=== PATIENT | male | born 1975 | race Caucasian/White ===

== ENCOUNTER 2022-03-29 13:37 | Inpatient (IN) | payer MEDICARE, OTHER ==
[2022-03-29] MEDS: NITROGLYCERIN SL TABS 0.4 MG TAB SUBLINGUAL PRN ×3 (13:46→14:24)
--- NOTE | 2022-03-29 14:11 | ED ---
SOB HPI - General Chief Complaint: Shortness of Breath Stated Complaint: EMILIANO Time Seen by Provider: 03/29/22 13:39 - History of Present Illness Initial Comments: 47-year-old male with past medical history of diabetes, end-stage renal disease on hemodialysis presents to the emergency department with shortness of breath. Patient has been doing in Center dialysis since December of this year. Previous to that he was doing home hemodialysis for a year. His motor bike mechanic is Dr. Walsh out of [place]. The patient was in court today for his stepson. States that he went to the restroom and became extremely short of breath. Began feeling lightheaded. EMS was called and found him to be 86%. Patient presents in severe respiratory distress. Extremely elevated blood pressure. He is supposed to take 2 mg Bumex daily however has not been on this medication for several months. He was hospitalized last week at [facility] for GI bleeding due to peptic ulcer disease. He left AGAINST MEDICAL ADVICE. States that he did not have any respiratory issues at that time. He has not missed any dialysis sessions. He made them aware at [facility] that he was not taking his Bumex and he was not instructed to restart it. He denies any fevers or chills. No syncope. No other alleviating, Perceptin or modifying factors - Related Data Home Medications Medication Instructions Recorded Confirmed ALPRAZolam [Xanax] 0.5 mg PO HS 03/29/22 03/29/22 Calcium Acetate [PhosLo] 2,001 mg PO TID-W/MEALS 03/29/22 03/29/22 Dialyvite 1 tab PO DAILY 03/29/22 03/29/22 Gabapentin 300 mg PO HS 03/29/22 03/29/22 Gabapentin [Neurontin] 300 mg PO DAILY PRN 03/29/22 03/29/22 HYDROcodone/APAP 7.5-325MG [[place] 1 tab PO TID PRN 03/29/22 03/29/22 7.5-325] INSULIN ASPART (NovoLOG) [NovoLOG See Protocol SQ TID-W/MEALS PRN 03/29/22 03/29/22 (formulary)] Lidocaine-Prilocaine Cream [Emla 1 applic TOPICAL DAILY PRN 03/29/22 03/29/22 Cream 2.5%/2.5%] Omeprazole 40 mg PO BID 03/29/22 03/29/22 Sodium Bicarbonate Tab 650 mg PO BID 03/29/22 03/29/22 Sucralfate [Carafate] 1 gm PO QID 03/29/22 03/29/22 Testosterone Cypionate 200 mg IM Q14D 03/29/22 03/29/22 [Depo-Testosterone] calcitrioL [Calcitriol] 1.5 mcg PO DAILY 03/29/22 03/29/22 rOPINIRole HCL [Requip] 0.5 mg PO HS 03/29/22 03/29/22 Previous Rx's Medication Instructions Recorded Bumetanide [BUMEX] 2 mg PO BID #30 tab 03/31/22 Levothyroxine Sodium [Synthroid] 25 mcg PO DAILY #30 tab 03/31/22 Losartan Potassium 100 mg PO HS #30 tab 03/31/22 amLODIPine [Norvasc] 5 mg PO DAILY #30 tab 03/31/22 carvediloL 12.5 mg PO BID #30 tab 03/31/22 Allergies Allergy/AdvReac Type Severity Reaction Status Date / Time No Known Allergies Allergy Verified 03/29/22 16:52 Review of Systems ROS Statement: Those systems with pertinent positive or pertinent negative responses have been documented in the HPI. ROS Other: All systems not noted in ROS Statement are negative. General Exam General appearance: alert, in distress Head exam: Present: atraumatic, normocephalic, normal inspection Eye exam: Present: normal appearance, PERRL, EOMI. Absent: scleral icterus, conjunctival injection, periorbital swelling ENT exam: Present: normal exam, mucous membranes moist Neck exam: Present: normal inspection. Absent: tenderness, meningismus, lymphadenopathy Respiratory exam: Present: rales, accessory muscle use, decreased breath sounds. Absent: respiratory distress, wheezes, rhonchi, stridor Cardiovascular Exam: Present: normal rhythm, tachycardia, normal heart sounds. Absent: systolic murmur, diastolic murmur, rubs, gallop, clicks GI/Abdominal exam: Present: soft, normal bowel sounds. Absent: distended, tenderness, guarding, rebound, rigid Extremities exam: Present: normal inspection, full ROM, normal capillary refill, pedal edema. Absent: tenderness, joint swelling, calf tenderness Back exam: Present: normal inspection Neurological exam: Present: alert, oriented X3, CN II-XII intact Psychiatric exam: Present: normal affect, normal mood, anxious Skin exam: Present: warm, intact, normal color, diaphoretic. Absent: rash Course Vital Signs 03/29/22 03/29/22 03/29/22 13:45 13:50 13:55 Temperature 97.8 F Pulse Rate 109 H Pulse Rate [ Pulse Oximetery ] Respiratory 32 H 30 H Rate Blood Pressure 244/161 Blood Pressure [Right Arm] O2 Sat by Pulse 86 L Oximetry Fraction of 80 Inspired Oxygen (FIO2) 03/29/22 03/29/22 03/29/22 14:09 14:20 14:41 Temperature Pulse Rate 102 H 98 Pulse Rate [ Pulse Oximetery ] Respiratory 30 H 30 H Rate Blood Pressure 207/123 219/127 Blood Pressure [Right Arm] O2 Sat by Pulse 92 L 100 Oximetry Fraction of 40 Inspired Oxygen (FIO2) 03/29/22 03/29/22 03/29/22 14:51 15:54 17:11 Temperature Pulse Rate 95 95 90 Pulse Rate [ Pulse Oximetery ] Respiratory 27 H 40 H 40 H Rate Blood Pressure 193/101 207/110 205/111 Blood Pressure [Right Arm] O2 Sat by Pulse 100 99 99 Oximetry Fraction of Inspired Oxygen (FIO2) 03/29/22 03/29/22 03/29/22 18:06 18:25 19:06 Temperature 98.4 F Pulse Rate Pulse Rate [ 91 Pulse Oximetery ] Respiratory 27 H Rate Blood Pressure 190/87 Blood Pressure 170/79 [Right Arm] O2 Sat by Pulse 100 Oximetry Fraction of 40 40 Inspired Oxygen (FIO2) 03/29/22 03/29/22 03/29/22 19:55 20:37 21:20 Temperature Pulse Rate 96 Pulse Rate [ Pulse Oximetery ] Respiratory 20 Rate Blood Pressure Blood Pressure 179/83 [Right Arm] O2 Sat by Pulse 97 Oximetry Fraction of 40 Inspired Oxygen (FIO2) Medical Decision Making - Medical Decision Making Upon arrival patient was immediately placed into trauma 2. A thorough history and physical exam was performed. Due to patient's significant respiratory distress he is placed on BiPAP. Laboratory studies are obtained and reviewed. Creatinine 12.1. BNP is 22,000. Chest x-ray demonstrates congestive heart failure. Patient was given 2 sublingual nitros with improvement in his blood pressure. He is given 1 mg of Bumex IV. I called and spoke with Dr. Johnson who is arranging the patient's dialysis at this time. Patient will be admitted [facility]. Spoke with Dr. Schwartz who agreed to admit the patient. He remained in stable condition awaiting a bed on the floor - Lab Data Result diagrams: 03/30/22 15:40 03/30/22 15:40 Lab Results 03/29/22 03/29/22 03/29/22 Range/Units 14:03 14:03 14:03 WBC 11.0 H (3.8-10.6) k/uL RBC 3.32 L (4.30-5.90) m/uL Hgb 9.5 L (13.0-17.5) gm/dL Hct 31.0 L (39.0-53.0) % MCV 93.5 (80.0-100.0) fL MCH 28.5 (25.0-35.0) pg MCHC 30.5 L (31.0-37.0) g/dL RDW 16.4 H (11.5-15.5) % Plt Count 310 (150-450) k/uL MPV 7.4 Neutrophils % 79 % Lymphocytes % 14 % Monocytes % 4 % Eosinophils % 2 % Basophils % 1 % Neutrophils # 8.7 H (1.3-7.7) k/uL Lymphocytes # 1.5 (1.0-4.8) k/uL Monocytes # 0.5 (0-1.0) k/uL Eosinophils # 0.2 (0-0.7) k/uL Basophils # 0.1 (0-0.2) k/uL Hypochromasia Moderate Anisocytosis Slight PT (9.0-12.0) sec INR (<1.2) APTT (22.0-30.0) sec Sodium 142 (137-145) mmol/L Potassium 5.1 (3.5-5.1) mmol/L Chloride 105 (98-107) mmol/L Carbon Dioxide 22 (22-30) mmol/L Anion Gap 15 mmol/L BUN 72 H (9-20) mg/dL Creatinine 12.14 H* (0.66-1.25) mg/dL Est GFR (CKD-EPI)AfAm 5 (>60 ml/min/1.73 sqM) Est GFR (CKD-EPI)NonAf 4 (>60 ml/min/1.73 sqM) Glucose 191 H (74-99) mg/dL Plasma Lactic Acid Forrest 0.9 (0.7-2.0) mmol/L Calcium 10.0 (8.4-10.2) mg/dL Total Bilirubin 0.6 (0.2-1.3) mg/dL AST 20 (17-59) U/L ALT 14 (4-49) U/L Alkaline Phosphatase 89 (38-126) U/L Troponin I (0.000-0.034) ng/mL NT-Pro-B Natriuret Pep pg/mL Total Protein 8.0 (6.3-8.2) g/dL Albumin 4.6 (3.5-5.0) g/dL Hep Bs Antigen (Nonreactive) Hep Bs Antibody (Nonreactive) Hep Bs Antibody, Quant mIU/mL 03/29/22 03/29/22 03/29/22 Range/Units 14:03 14:03 14:03 WBC (3.8-10.6) k/uL RBC (4.30-5.90) m/uL Hgb (13.0-17.5) gm/dL Hct (39.0-53.0) % MCV (80.0-100.0) fL MCH (25.0-35.0) pg MCHC (31.0-37.0) g/dL RDW (11.5-15.5) % Plt Count (150-450) k/uL MPV Neutrophils % % Lymphocytes % % Monocytes % % Eosinophils % % Basophils % % Neutrophils # (1.3-7.7) k/uL Lymphocytes # (1.0-4.8) k/uL Monocytes # (0-1.0) k/uL Eosinophils # (0-0.7) k/uL Basophils # (0-0.2) k/uL Hypochromasia Anisocytosis PT (9.0-12.0) sec INR (<1.2) APTT (22.0-30.0) sec Sodium (137-145) mmol/L Potassium (3.5-5.1) mmol/L Chloride (98-107) mmol/L Carbon Dioxide (22-30) mmol/L Anion Gap mmol/L BUN (9-20) mg/dL Creatinine (0.66-1.25) mg/dL Est GFR (CKD-EPI)AfAm (>60 ml/min/1.73 sqM) Est GFR (CKD-EPI)NonAf (>60 ml/min/1.73 sqM) Glucose (74-99) mg/dL Plasma Lactic Acid Forrest (0.7-2.0) mmol/L Calcium (8.4-10.2) mg/dL Total Bilirubin (0.2-1.3) mg/dL AST (17-59) U/L ALT (4-49) U/L Alkaline Phosphatase (38-126) U/L Troponin I 0.014 (0.000-0.034) ng/mL NT-Pro-B Natriuret Pep 97749 pg/mL Total Protein (6.3-8.2) g/dL Albumin (3.5-5.0) g/dL Hep Bs Antigen Nonreactive (Nonreactive) Hep Bs Antibody (Nonreactive) Hep Bs Antibody, Quant mIU/mL 03/29/22 03/29/22 Range/Units 14:03 14:59 WBC (3.8-10.6) k/uL RBC (4.30-5.90) m/uL Hgb (13.0-17.5) gm/dL Hct (39.0-53.0) % MCV (80.0-100.0) fL MCH (25.0-35.0) pg MCHC (31.0-37.0) g/dL RDW (11.5-15.5) % Plt Count (150-450) k/uL MPV Neutrophils % % Lymphocytes % % Monocytes % % Eosinophils % % Basophils % % Neutrophils # (1.3-7.7) k/uL Lymphocytes # (1.0-4.8) k/uL Monocytes # (0-1.0) k/uL Eosinophils # (0-0.7) k/uL Basophils # (0-0.2) k/uL Hypochromasia Anisocytosis PT 10.6 (9.0-12.0) sec INR 1.0 (<1.2) APTT 23.2 (22.0-30.0) sec Sodium (137-145) mmol/L Potassium (3.5-5.1) mmol/L Chloride (98-107) mmol/L Carbon Dioxide (22-30) mmol/L Anion Gap mmol/L BUN (9-20) mg/dL Creatinine (0.66-1.25) mg/dL Est GFR (CKD-EPI)AfAm (>60 ml/min/1.73 sqM) Est GFR (CKD-EPI)NonAf (>60 ml/min/1.73 sqM) Glucose (74-99) mg/dL Plasma Lactic Acid Forrest (0.7-2.0) mmol/L Calcium (8.4-10.2) mg/dL Total Bilirubin (0.2-1.3) mg/dL AST (17-59) U/L ALT (4-49) U/L Alkaline Phosphatase (38-126) U/L Troponin I (0.000-0.034) ng/mL NT-Pro-B Natriuret Pep pg/mL Total Protein (6.3-8.2) g/dL Albumin (3.5-5.0) g/dL Hep Bs Antigen (Nonreactive) Hep Bs Antibody Nonreactive (Nonreactive) Hep Bs Antibody, Quant 3.5 mIU/mL - EKG Data EKG Comments: EKG demonstrates sinus tach with a rate of 114. ME interval 161. QRS 87. QTC 391. No acute ST segment elevations or depressions Critical Care Time Critical Care Time: Yes Critical Care Time: 35 minutes Disposition Clinical Impression: Flash pulmonary edema, ESRD on dialysis, BiPAP (biphasic positive airway pressure) dependence, Hypertensive emergency Disposition: ADMITTED IP TO THIS [facility] Condition: Serious Is patient prescribed a controlled substance at d/c from ED?: No Time of Disposition: 15:31 Decision to Admit Reason: Admit from EC Decision Date: 03/29/22 Decision Time: 15:31
[2022-03-29 14:14] LABS: Anisocytosis Slight; Basophils # (A) 0.1 k/uL (0-0.2); Basophils % (A) 1 %; Eosinophils # (A) 0.2 k/uL (0-0.7); Eosinophils % (A) 2 %; HGB 9.5 gm/dL (13.0-17.5); Hypochromasia Moderate; Lymphocytes # (A) 1.5 k/uL (1.0-4.8); Lymphocytes % (A) 14 %; MCH 28.5 pg (25.0-35.0); MCHC 30.5 g/dL (31.0-37.0); MCV 93.5 fL (80.0-100.0); Mean Platelet Volume 7.4; Monocytes # (A) 0.5 k/uL (0-1.0); Monocytes % (A) 4 %; Neutrophils # (A) 8.7 k/uL (1.3-7.7); Neutrophils % (A) 79 %; Platelet Count 310 k/uL (150-450); RBC 3.32 m/uL (4.30-5.90); RDW 16.4 % (11.5-15.5)
[2022-03-29 14:30] LABS: Albumin 4.6 g/dL (3.5-5.0); Potassium 5.1 mmol/L (3.5-5.1); Total Bilirubin 0.6 mg/dL (0.2-1.3)
--- NOTE | 2022-03-29 14:52 | XR ---
EXAMINATION TYPE: XR chest 1V portable DATE OF EXAM: 03/29/2022 Comparison: None Clinical History: 47-year-old male sob Findings: Portable exam further limited by large body habitus. The heart appears enlarged. Diffuse interstitial and patchy mid and lower lung opacities. Lung bases are underpenetrated and not well assessed. Impression: Portable exam further limited by large body habitus. Correlate for possible CHF and mild interstitial pulmonary edema.
[2022-03-29 15:18] LABS: Partial Thromboplastin Time 23.2 sec (22.0-30.0); Prothrombin Time 10.6 sec (9.0-12.0)
[2022-03-29] MEDS ORDERED: NALOXONE 0.4 MG/ML 1 ML VIAL IV PRN (15:33)
[2022-03-29] MEDS ORDERED: BUMETANIDE 0.25 MG/ML 4 ML VIAL IVP STA (15:33)
[2022-03-29] MEDS ORDERED: LABETALOL 5 MG/ML VIAL MDV IVP STA (17:06)
[2022-03-29] MEDS ORDERED: GABAPENTIN 300 MG CAP PO PRN (17:19)
--- NOTE | 2022-03-29 17:35 | P.HPIM ---
History of Present Illness Chief Complaint: Shortness of breath Patient is a 47-year-old male with a past medical history significant for essential hypertension, hyperlipidemia, end-stage renal disease on hemodialysis Tuesday, Tuesday, Tuesday, hyperthyroidism and peripheral neuropathy the presents a hospital complaining of shortness of breath. Patient was apparently getting ready to nevus cells may start shortness of breath. He denies any active chest pain, palpitations, nausea or vomiting. Patient has not been compliant with his medication for approximately 1-2 months as he ran out and never refilled his medication. Patient however does follow up with his dialysis regimen last one was on Tuesday. Bedside in the emergency department blood pressure readings were 200/110. He is scheduled for emergent dialysis with nephrology. CBC reviewed where blood cell count of 11, hemoglobin 9.5, platelet within normal limits, BMP reviewed creatinine of 12.14, B1 74 and glucose 194. Cardiac troponin negative. BNP 22,000. Chest x-ray review showed suggesting congestion. Past Medical History Past Medical History: Diabetes Mellitus, Renal Disease, Sleep Apnea/CPAP/BIPAP Additional Past Medical History / Comment(s): dialysis M/W/F History of Any Multi-Drug Resistant Organisms: MRSA Date of last positivie culture/infection: 2009 MDRO Source:: neck Past Surgical History: No Surgical Hx Reported Past Psychological History: No Psychological Hx Reported Smoking Status: Never smoker Past Alcohol Use History: None Reported Past Drug Use History: None Reported Medications and Allergies Home Medications Medication Instructions Recorded Confirmed Type ALPRAZolam [Xanax] 0.5 mg PO HS 03/29/22 03/29/22 History Bumetanide [BUMEX] 2 mg PO BID 03/29/22 03/29/22 History Calcium Acetate [Phoslo] 2,001 mg PO TID-W/MEALS 03/29/22 03/29/22 History Dialyvite 1 tab PO DAILY 03/29/22 03/29/22 History Gabapentin 300 mg PO HS 03/29/22 03/29/22 History Gabapentin [Neurontin] 300 mg PO DAILY PRN 03/29/22 03/29/22 History HYDROcodone/APAP 7.5-325MG [[place] 1 tab PO TID PRN 03/29/22 03/29/22 History 7.5-325] INSULIN ASPART (NovoLOG) [NovoLOG See Protocol SQ TID-W/MEALS PRN 03/29/22 03/29/22 History (formulary)] Levothyroxine Sodium [Synthroid] 25 mcg PO DAILY 03/29/22 03/29/22 History Lidocaine-Prilocaine Cream [Emla 1 applic TOPICAL DAILY PRN 03/29/22 03/29/22 History Cream 2.5%/2.5%] Losartan Potassium 100 mg PO HS 03/29/22 03/29/22 History Omeprazole 40 mg PO BID 03/29/22 03/29/22 History Sodium Bicarbonate Tab 650 mg PO BID 03/29/22 03/29/22 History Sucralfate [Carafate] 1 gm PO QID 03/29/22 03/29/22 History Testosterone Cypionate 200 mg IM Q14D 03/29/22 03/29/22 History [Depo-Testosterone] amLODIPine [Norvasc] 5 mg PO DAILY 03/29/22 03/29/22 History calcitrioL [Calcitriol] 1.5 mcg PO DAILY 03/29/22 03/29/22 History carvediloL 12.5 mg PO BID 03/29/22 03/29/22 History rOPINIRole HCL [Requip] 0.5 mg PO HS 03/29/22 03/29/22 History Allergies Allergy/AdvReac Type Severity Reaction Status Date / Time No Known Allergies Allergy Verified 03/29/22 16:52 Physical Exam Vitals: Vital Signs Temp Pulse Resp BP Pulse Ox FiO2 03/29/22 17:11 90 40 H 205/111 99 03/29/22 15:54 95 40 H 207/110 99 03/29/22 14:51 95 27 H 193/101 100 03/29/22 14:41 40 03/29/22 14:20 98 30 H 219/127 100 03/29/22 14:09 102 H 30 H 207/123 92 L 03/29/22 13:55 80 03/29/22 13:50 30 H 03/29/22 13:45 97.8 F 109 H 32 H 244/161 86 L Intake and Output 03/29/22 03/29/22 03/29/22 06:59 14:59 22:59 Other: Weight 154.221 kg Gen. patient is awake alert oriented 3 Cardio normal S1/S2 Respiratory decreased breath sounds secondary to body habitus no wheezing appreciated Abdomen soft, nontender Extremity no pitting edema noted Psychiatry patient is in good spirits. Results CBC & Chem 7: 03/29/22 14:03 03/29/22 14:03 Labs: Abnormal Lab Results - Last 24 Hours (Table) 03/29/22 03/29/22 Range/Units 14:03 14:03 WBC 11.0 H (3.8-10.6) k/uL RBC 3.32 L (4.30-5.90) m/uL Hgb 9.5 L (13.0-17.5) gm/dL Hct 31.0 L (39.0-53.0) % MCHC 30.5 L (31.0-37.0) g/dL RDW 16.4 H (11.5-15.5) % Neutrophils # 8.7 H (1.3-7.7) k/uL BUN 72 H (9-20) mg/dL Creatinine 12.14 H* (0.66-1.25) mg/dL Glucose 191 H (74-99) mg/dL Assessment and Plan Assessment: Assessment: #1 hypertensive urgency secondary to medication noncompliance #2 essential hypertension #3 end-stage renal disease on hemodialysis #4 hyperlipidemia #5 hypothyroidism #6 peripheral neuropathy #7 severe obesity class III Plan: -Admit to medicine for close monitoring -Aspiration/fall precaution -Scheduled for urgent dialysis today -One-time dose of labetalol IV 10 mg -Resume home medication. Education regarding compliance provided at bedside. -Nephrology consulted for dialysis -Education regarding compliance provided at bedside -Patient will also benefit from weight loss interventions -Obtain lipid panel hemoglobin A1c -Due to prophylaxis heparin
[2022-03-29] MEDS: carvediloL 12.5 MG TAB PO SCH (19:05)
[2022-03-29] MEDS: ALPRAZolam 0.5 MG TAB PO SCH (21:09)
[2022-03-29] MEDS: SODIUM BICARBONATE TAB 650 MG TAB PO SCH (21:10)
[2022-03-29] MEDS: CALCIUM ACETATE 667 MG TAB PO SCH (21:11)
[2022-03-29] MEDS: PANTOPRAZOLE 40 MG TABLET PO SCH (21:12)
[2022-03-29] MEDS: GABAPENTIN 300 MG CAP PO SCH (21:12)
[2022-03-29] MEDS: LOSARTAN 50 MG TAB PO SCH (21:13)
[2022-03-29] MEDS: HYDROcodone/APAP 7.5-325MG 1 EACH TAB PO PRN (21:13)
[2022-03-29] MEDS: BUMETANIDE 1 MG TAB PO SCH (21:18)
[2022-03-29] MEDS: SUCRALFATE 1 GM TAB PO SCH ×2 (21:22→21:23)
[2022-03-29 23:49] LABS: Hepatitis B Surface AB- Quant 3.5 mIU/mL; Hepatitis B Surface Antibody Nonreactive (Nonreactive)
[2022-03-30] MEDS: HEPARIN SODIUM,PORCINE/PF 5,000 UNIT/0.5 ML SYRINGE SQ SCH ×4 (00:52→23:30)
[2022-03-30 06:13] LABS: Glucose,Whole Blood 177 mg/dL (70-110)
[2022-03-30] MEDS: INSULIN ASPART (NovoLOG) 100 UNIT/ML VIAL SQ SCH ×3 (06:40→17:12)
[2022-03-30] MEDS: HYDROcodone/APAP 7.5-325MG 1 EACH TAB PO PRN ×2 (06:40→20:09)
[2022-03-30] MEDS: carvediloL 12.5 MG TAB PO SCH ×2 (06:40→18:58)
[2022-03-30] MEDS: LEVOTHYROXINE 25 MCG TAB PO SCH (06:40)
[2022-03-30] MEDS: BUMETANIDE 1 MG TAB PO SCH ×2 (08:28→20:06)
[2022-03-30] MEDS: CALCIUM ACETATE 667 MG TAB PO SCH ×3 (08:28→17:13)
[2022-03-30] MEDS: SUCRALFATE 1 GM TAB PO SCH ×4 (08:28→20:07)
[2022-03-30] MEDS: PANTOPRAZOLE 40 MG TABLET PO SCH ×2 (08:28→20:06)
[2022-03-30] MEDS: SODIUM BICARBONATE TAB 650 MG TAB PO SCH ×2 (08:28→20:06)
[2022-03-30] MEDS ORDERED: amLODIPine 5 MG TAB PO SCH (09:00)
--- NOTE | 2022-03-30 09:10 | P.PN ---
Subjective Patient was examined at bedside today. He is very appreciative the help, follow-up with his primary care doctor regarding medication refills that he is more compliant. He does have a very positive outlook. He is due for hemodialysis session today. Denies any shortness of breath, chest pain or palpitations during my evaluation. Was on the phone with his was also provided a conversation. Objective - Vital Signs Vital signs: Vital Signs Temp 98.5 F 03/30/22 04:00 Pulse 89 03/30/22 04:00 Resp 22 03/30/22 04:00 BP 172/80 03/30/22 04:00 Pulse Ox 98 03/30/22 08:22 FiO2 40 03/30/22 04:00 Intake & Output 03/29/22 03/30/22 03/30/22 18:59 06:59 18:59 Output Total 4250 Balance -4250 Weight 154.221 kg Output: Urine 250 Hemodialysis 4000 Other: Voiding Method Indwelling Catheter - Exam Gen. patient is awake alert oriented 3 Cardio normal S1/S2 Respiratory decreased breath sounds secondary to body habitus no wheezing appreciated-BiPAP present at bedside use it overnight Abdomen soft, nontender Extremity no pitting edema noted Psychiatry patient is in good spirits. - Labs CBC & Chem 7: 03/29/22 14:03 03/29/22 14:03 Labs: Abnormal Lab Results - Last 24 Hours (Table) 03/29/22 03/29/22 03/30/22 Range/Units 14:03 14:03 05:56 WBC 11.0 H (3.8-10.6) k/uL RBC 3.32 L (4.30-5.90) m/uL Hgb 9.5 L (13.0-17.5) gm/dL Hct 31.0 L (39.0-53.0) % MCHC 30.5 L (31.0-37.0) g/dL RDW 16.4 H (11.5-15.5) % Neutrophils # 8.7 H (1.3-7.7) k/uL BUN 72 H (9-20) mg/dL Creatinine 12.14 H* (0.66-1.25) mg/dL Glucose 191 H (74-99) mg/dL POC Glucose (mg/dL) 177 H (70-110) mg/dL Assessment and Plan Assessment: Assessment: #1 hypertensive urgency secondary to medication noncompliance #2 essential hypertension #3 end-stage renal disease on hemodialysis #4 hyperlipidemia #5 hypothyroidism #6 peripheral neuropathy #7 severe obesity class III Plan: -Admit to medicine for close monitoring -Aspiration/fall precaution -Scheduled for another hemodialysis with nephrotic today. -Needs better blood pressure control with a goal of less than 130/80 titrate slowly -Resume home medication. Education regarding compliance provided at bedside. -Nephrology for dialysis -Education regarding compliance provided at bedside -Patient will also benefit from weight loss interventions -Obtain lipid panel hemoglobin A1c pending -DVT prophylaxis heparin
[2022-03-30] MEDS ORDERED: amLODIPine 5 MG TAB PO ONE (09:15)
[2022-03-30 11:53] LABS: Glucose,Whole Blood 210 mg/dL (70-110)
--- NOTE | 2022-03-30 14:22 | CDI ---
Documentation Clarification Form Date: 03/30/2022 02:06:44 PM From: Yumiko Faria RN CCDS Admit Date: 03/29/2022 03:33:00 PM Patient Name: Brad Fuentes Visit Number: [id number] Discharge Date: ATTENTION: The Clinical Documentation Specialists (CDI) and [facility] Coding Staff appreciate your assistance in clarifying documentation. Please respond to the clarification below the line at the bottom and electronically sign. The CDI & [facility] Coding staff will review the response and follow-up if needed. Please note: Queries are made part of the Legal Health Record. If you have any questions, please contact the author of this message via ITS. Dr. Tamir Jasso Your patient had a SpO2 86% on room air, treated with BiPAP, 03/29, VSS. Based on this information and the findings below, is there an additional diagnosis that is clinically appropriate for this patient? History/Risk Factors: 47-year-old male presents to the ED with shortness of breath. Medical history: ESRD, DM and Sleep apnea CPAP/BIPAP. 03/29, H&P Clinical Indicators: Vital signs: 03/29 B/P 13:45 B/P 244/161; HR 109; Temp 97.8 F Axillary; RR 32; SpO2 86% room air 03/29 14:09 VSS B/P 207/123, HR 102 RR 30 SpO2 92% BiPAP Lung/Breathing assessment: 03/29 H&P Respiratory decreased breath sounds secondary to body habitus no wheezing Treatment: 03/29 Bumex 1mg IVP x 1; 03/29 Bumex 2mg PO Bid; 03/29 Dialysis 4,000 output BiPAP: 03/29 13:50 03/30 0400 Is there an additional diagnosis that is clinically appropriate for this patient? [ 1 ] Acute Hypoxic Respiratory Failure (pO2 <60 mm Hg or SpO2 <91% on room air) [ ] Other Diagnosis, please specify [ ] Unable to determine (Template Last Revised: November 2020) MTDD
[2022-03-30 15:55] LABS: Anisocytosis Slight; Basophils % (A) 0 %; Eosinophils # (A) 0.2 k/uL (0-0.7); Eosinophils % (A) 3 %; HCT 25.3 % (39.0-53.0); Hypochromasia Slight; Lymphocytes # (A) 1.4 k/uL (1.0-4.8); Lymphocytes % (A) 19 %; MCH 28.1 pg (25.0-35.0); MCHC 30.5 g/dL (31.0-37.0); MCV 92.2 fL (80.0-100.0); Mean Platelet Volume 7.5; Monocytes # (A) 0.5 k/uL (0-1.0); Monocytes % (A) 7 %; Neutrophils # (A) 4.9 k/uL (1.3-7.7); Neutrophils % (A) 69 %; Platelet Count 230 k/uL (150-450); RBC 2.75 m/uL (4.30-5.90); RDW 16.3 % (11.5-15.5)
[2022-03-30 15:57] LABS: HGB 7.7 gm/dL (13.0-17.5)
[2022-03-30 16:05] LABS: African American GFR (CKD) 6 (>60 ml/min/1.73 sqM); Carbon Dioxide 25 mmol/L (22-30); Chloride 103 mmol/L (98-107); Non-African American GFR(CKD) 5 (>60 ml/min/1.73 sqM)
[2022-03-30 16:12] LABS: Anion Gap 10 mmol/L; Blood Urea Nitrogen 57 mg/dL (9-20); Calcium 9.3 mg/dL (8.4-10.2); Glucose 188 mg/dL (74-99); Potassium 4.9 mmol/L (3.5-5.1); Sodium 138 mmol/L (137-145)
[2022-03-30 16:53] LABS: Glucose,Whole Blood 172 mg/dL (70-110)
--- NOTE | 2022-03-30 19:51 | CONS ---
CONSULTATION REASON FOR CONSULTATION: End-stage renal disease. HISTORY OF PRESENT ILLNESS: Patient is a 47-year-old male with end-stage renal disease secondary to diabetic kidney disease. Patient was admitted to the hospital with complaints of shortness of breath. Patient denied any chest pains. No nausea or vomiting. No fever or chills. Patient had not had his dialysis Tuesday as outpatient and was therefore dialyzed in the hospital last night. His blood pressure was significantly elevated, with systolic blood pressure more than 200. Patient had 4 L of ultrafiltration. Patient currently dialyzes at the [facility]. He states that he lives in [place] and would like to move to a unit that is closer. PAST MEDICAL HISTORY: Type 2 diabetes, obstructive sleep apnea, end-stage renal disease. PAST SURGICAL HISTORY: PermCath placement previously, AV fistula. SOCIAL HISTORY: Negative for smoking, drug abuse or alcohol abuse. MEDICATIONS: Medications include Bumex, Xanax, PhosLo, , Neurontin, insulin, Synthroid, sodium bicarb, Carafate, Norvasc, calcitriol, Coreg, Requip, Carafate. ALLERGIES: NONE. REVIEW OF SYSTEMS: As per HPI. Other systems negative. PHYSICAL EXAMINATION: Patient is comfortable, awake, alert, oriented x3. Not in any acute distress. Blood pressure was 165/76, heart rate 81 per minute. Patient is afebrile. Examination of the heart: S1, S2. Examination of lungs: Bilateral breath sounds are heard. Examination of lower extremities shows edema 1+ bilaterally. Abdomen is soft, obese, nontender. 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 LABS: Hemoglobin 9.5, sodium 142, potassium 5.1, serum creatinine 12.1. ASSESSMENT: 1. End-stage renal disease, maintained on in-center hemodialysis on a Tuesday, Tuesday, Tuesday schedule. Patient had been on home hemodialysis previously. 2. Fluid overload, currently improved. 3. Hypertensive emergency, status post hemodialysis yesterday with 4 L of ultrafiltration. Blood pressure is slightly improved. 4. Chronic kidney disease mineral bone disorder. PLAN: Repeat hemodialysis today. Patient will have another treatment tomorrow, as tomorrow is his regular day. He is advised that he can submit a referral for transfer to either the Unit or the [facility] for dialysis, as these two units are much closer to where he resides. This is discussed with Case Management as well. Thank you for the consultation. We will continue to follow the patient with you during his hospitalization. MMRENITA / SHERI: [id number] /
[2022-03-30] MEDS: ALPRAZolam 0.5 MG TAB PO SCH (20:06)
[2022-03-30] MEDS: LOSARTAN 50 MG TAB PO SCH (20:06)
[2022-03-30] MEDS: GABAPENTIN 300 MG CAP PO SCH (20:06)
[2022-03-30 20:17] LABS: Glucose,Whole Blood 193 mg/dL (70-110)
[2022-03-31 02:52] LABS: Chol/HDL Ratio 4.39 Ratio; LDL Cholesterol,Calculated 84.5 mg/dL (0.0-131.0)
[2022-03-31 06:09] LABS: Glucose,Whole Blood 178 mg/dL (70-110)
[2022-03-31] MEDS: CALCIUM ACETATE 667 MG TAB PO SCH ×2 (06:23→12:17)
[2022-03-31] MEDS: carvediloL 12.5 MG TAB PO SCH (06:23)
[2022-03-31] MEDS: INSULIN ASPART (NovoLOG) 100 UNIT/ML VIAL SQ SCH ×2 (06:23→12:17)
[2022-03-31] MEDS: LEVOTHYROXINE 25 MCG TAB PO SCH (06:23)
[2022-03-31] MEDS: PANTOPRAZOLE 40 MG TABLET PO SCH (08:07)
[2022-03-31] MEDS: BUMETANIDE 1 MG TAB PO SCH (08:07)
[2022-03-31] MEDS: SODIUM BICARBONATE TAB 650 MG TAB PO SCH (08:07)
[2022-03-31] MEDS: SUCRALFATE 1 GM TAB PO SCH ×2 (08:07→12:17)
[2022-03-31] MEDS: HEPARIN SODIUM,PORCINE/PF 5,000 UNIT/0.5 ML SYRINGE SQ SCH (08:07)
[2022-03-31] MEDS ORDERED: amLODIPine 10 MG TAB PO SCH (09:00)
[2022-03-31 09:37] VITALS: RESP 20
--- NOTE | 2022-03-31 10:57 | P.PN ---
Subjective Patient is seen for follow-up for end-stage renal disease. He was dialyzed yesterday with 4 L of ultrafiltration. Patient had her treatment prior to that as well with another 4 L. Patient will be discharged today and he plans to switch to a dialysis unit that is much closer. He has been advised to contact [facility] as outpatient for possible transfer. Objective - Vital Signs Vital signs: Vital Signs Temp 98.6 F 03/30/22 20:05 Pulse 70 03/31/22 08:00 Resp 20 03/31/22 08:00 BP 158/89 03/31/22 08:00 Pulse Ox 97 03/31/22 08:00 FiO2 40 03/31/22 04:31 Intake & Output 03/30/22 03/31/22 03/31/22 18:59 06:59 18:59 Intake Total 476 1000 Output Total 100 4400 Balance 376 -3400 Weight 152.6 kg Intake: Oral 476 600 Hemodialysis 400 Output: Urine 100 Uretheral (Fonseca) 100 Hemodialysis 4400 Other: Voiding Method Toilet Toilet # Voids 3 3 - Exam Awake, comfortable, not in any acute distress Alert oriented 3 Examination of the abdomen reveals it to be soft nontender Examination lower extremity shows no evidence of edema [employer] exam grossly intact - Labs CBC & Chem 7: 03/30/22 15:40 03/30/22 15:40 Labs: Abnormal Lab Results - Last 24 Hours (Table) 03/30/22 03/30/22 03/30/22 Range/Units 11:51 15:40 15:40 RBC 2.75 L (4.30-5.90) m/uL Hgb 7.7 L D (13.0-17.5) gm/dL Hct 25.3 L (39.0-53.0) % MCHC 30.5 L (31.0-37.0) g/dL RDW 16.3 H (11.5-15.5) % BUN 57 H (9-20) mg/dL Creatinine 10.70 H* (0.66-1.25) mg/dL Glucose 188 H (74-99) mg/dL POC Glucose (mg/dL) 210 H (70-110) mg/dL Hemoglobin A1c (0.0-6.0) % HDL Cholesterol 31.90 L (40.00-60.00) mg/dL 03/30/22 03/30/22 03/30/22 Range/Units 15:40 16:35 20:15 RBC (4.30-5.90) m/uL Hgb (13.0-17.5) gm/dL Hct (39.0-53.0) % MCHC (31.0-37.0) g/dL RDW (11.5-15.5) % BUN (9-20) mg/dL Creatinine (0.66-1.25) mg/dL Glucose (74-99) mg/dL POC Glucose (mg/dL) 172 H 193 H (70-110) mg/dL Hemoglobin A1c 7.3 H (0.0-6.0) % HDL Cholesterol (40.00-60.00) mg/dL 03/31/22 Range/Units 06:06 RBC (4.30-5.90) m/uL Hgb (13.0-17.5) gm/dL Hct (39.0-53.0) % MCHC (31.0-37.0) g/dL RDW (11.5-15.5) % BUN (9-20) mg/dL Creatinine (0.66-1.25) mg/dL Glucose (74-99) mg/dL POC Glucose (mg/dL) 178 H (70-110) mg/dL Hemoglobin A1c (0.0-6.0) % HDL Cholesterol (40.00-60.00) mg/dL Assessment and Plan Assessment: 1. End-stage renal disease maintained on hemodialysis at the [facility] unit on a Tuesday schedule. Patient is looking for possible transfer to a closer unit. 2. Volume overload currently improved 3. CK D mineral bone disorder 4. Hypertension with CK D 5. Anemia of chronic disease. No active bleeding noted Plan: Patient can be discharged and he will follow-up for his hemodialysis as outpatient [facility] 1 prior to discharge Patient is advised that he can request for transfer to the [facility] unit or [facility] unit post discharge As outpatient
[2022-03-31 11:37] LABS: Glucose,Whole Blood 272 mg/dL (70-110)
[2022-03-31 11:58] VITALS: BP 136/91; PULSE 72; TEMP 98.2
--- NOTE | 2022-03-31 12:37 | P.DS ---
Providers Date of admission: 03/29/22 15:33 Attending physician: Elva Schwartz DO Consults: 03/29/22 15:00 Consult Physician Urgent Consulting Provider: Jeimy Johnson Consult Reason/Comments: esrd on hd Do you want consulting provider notified?: Already Contacted Primary care physician: Physician Nonstaff Hospital Course: Patient is a 47-year-old male with a past medical history significant for ess ential hypertension, hyperlipidemia, end-stage renal disease on hemodialysis Tuesday, Tuesday, Tuesday, hyperthyroidism and peripheral neuropathy the presents a hospital complaining of shortness of breath. Patient was apparently getting ready to nevus cells may start shortness of breath. He denies any active chest pain, palpitations, nausea or vomiting. Patient has not been compliant with his medication for approximately 1-2 months as he ran out and never refilled his medication. Patient however does follow up with his dialysis regimen last one was on Tuesday. Bedside in the emergency department blood pressure readings were 200/110. He is scheduled for emergent dialysis with nephrology. CBC reviewed where blood cell count of 11, hemoglobin 9.5, platelet within normal limits, BMP reviewed creatinine of 12.14, B1 74 and glucose 194. Cardiac troponin negative. BNP 22,000. Chest x-ray review showed suggesting congestion. Was evaluated by nephrology. Patient underwent hemodialysis 2. He is scheduled for another hemodialysis at the Center today. I did speak with case management and the patient regarding moving the hemodialysis chair closer. Case management informed that the family and the patient have to coordinate that with the dialysis center. Patient is aware of this. He is trying to make this happen. Indication compliance and making sure that he takes medication on time. Patient states he will make changes including lifestyle and adhering to his medication. Today at bedside his vital signs are stable he denies any shortness of breath, chest pain or palpitations. Case discussed with RN, family his present at bedside and himself all questions were answered. She has been cleared by nephrology for discharge today. Patient Condition at Discharge: Serious Plan - Discharge Summary Discharge Rx Participant: No New Discharge Prescriptions: Continue Sucralfate [Carafate] 1 gm PO QID rOPINIRole HCL [Requip] 0.5 mg PO HS INSULIN ASPART (NovoLOG) [NovoLOG (formulary)] See Protocol SQ TID-W/MEALS PRN PRN Reason: high blood sugar HYDROcodone/APAP 7.5-325MG [[place] 7.5-325] 1 tab PO TID PRN PRN Reason: Pain Calcium Acetate [PhosLo] 2,001 mg PO TID-W/MEALS calcitrioL [Calcitriol] 1.5 mcg PO DAILY Testosterone Cypionate [Depo-Testosterone] 200 mg IM Q14D Sodium Bicarbonate Tab 650 mg PO BID Bumetanide [BUMEX] 2 mg PO BID #30 tab carvediloL 12.5 mg PO BID #30 tab amLODIPine [Norvasc] 5 mg PO DAILY #30 tab Levothyroxine Sodium [Synthroid] 25 mcg PO DAILY #30 tab Omeprazole 40 mg PO BID Lidocaine-Prilocaine Cream [Emla Cream 2.5%/2.5%] 1 applic TOPICAL DAILY PRN PRN Reason: before dialysis Gabapentin [Neurontin] 300 mg PO DAILY PRN PRN Reason: nerve pain Gabapentin 300 mg PO HS Dialyvite 1 tab PO DAILY ALPRAZolam [Xanax] 0.5 mg PO HS Losartan Potassium 100 mg PO HS #30 tab Discharge Medication List ALPRAZolam [Xanax] 0.5 mg PO HS 03/29/22 [History] Calcium Acetate [PhosLo] 2,001 mg PO TID-W/MEALS 03/29/22 [History] Dialyvite 1 tab PO DAILY 03/29/22 [History] Gabapentin 300 mg PO HS 03/29/22 [History] Gabapentin [Neurontin] 300 mg PO DAILY PRN 03/29/22 [History] HYDROcodone/APAP 7.5-325MG [[place] 7.5-325] 1 tab PO TID PRN 03/29/22 [History] INSULIN ASPART (NovoLOG) [NovoLOG (formulary)] See Protocol SQ TID-W/MEALS PRN 03/29/22 [History] Lidocaine-Prilocaine Cream [Emla Cream 2.5%/2.5%] 1 applic TOPICAL DAILY PRN 03/29/22 [History] Omeprazole 40 mg PO BID 03/29/22 [History] Sodium Bicarbonate Tab 650 mg PO BID 03/29/22 [History] Sucralfate [Carafate] 1 gm PO QID 03/29/22 [History] Testosterone Cypionate [Depo-Testosterone] 200 mg IM Q14D 03/29/22 [History] calcitrioL [Calcitriol] 1.5 mcg PO DAILY 03/29/22 [History] rOPINIRole HCL [Requip] 0.5 mg PO HS 03/29/22 [History] Bumetanide [BUMEX] 2 mg PO BID #30 tab 03/31/22 [Rx] Levothyroxine Sodium [Synthroid] 25 mcg PO DAILY #30 tab 03/31/22 [Rx] Losartan Potassium 100 mg PO HS #30 tab 03/31/22 [Rx] amLODIPine [Norvasc] 5 mg PO DAILY #30 tab 03/31/22 [Rx] carvediloL 12.5 mg PO BID #30 tab 03/31/22 [Rx] Follow up Appointment(s)/Referral(s): Nonstaff,Physician [Primary Care Provider] - 1-2 days Jeimy Johnson MD [STAFF PHYSICIAN] - 1 Week Discharge Disposition: HOME SELF-CARE
== END 2022-03-31 13:00 | disposition home or self-care (01) | DRG 291 ==
LOC: EC 13:37 → 3SCARD 15:33
PROVIDERS: ADMIT Internal Medicine; ATTEND Internal Medicine
PROC: 5A1D70Z Performance of Urinary Filtration, Intermittent, Less than 6 Hours Per Day (ICD-10-PCS; principal; 2022-03-29)
DX: I13.2 Hypertensive heart and chronic kidney disease with heart failure and with stage 5 chronic kidney disease, or end stage renal disease (principal); J96.01 Acute respiratory failure with hypoxia; N18.6 End stage renal disease; I16.1 Hypertensive emergency; I50.9 Heart failure, unspecified; E83.9 Disorder of mineral metabolism, unspecified; E66.01 Morbid (severe) obesity due to excess calories; E11.22 Type 2 diabetes mellitus with diabetic chronic kidney disease; T46.5X6A Underdosing of other antihypertensive drugs, initial encounter; D63.1 Anemia in chronic kidney disease; G47.33 Obstructive sleep apnea (adult) (pediatric); Z99.2 Dependence on renal dialysis; Z79.4 Long term (current) use of insulin; E03.9 Hypothyroidism, unspecified; E78.5 Hyperlipidemia, unspecified; E11.42 Type 2 diabetes mellitus with diabetic polyneuropathy; Z79.890 Hormone replacement therapy; Z79.899 Other long term (current) drug therapy; Z91.128 Patient's intentional underdosing of medication regimen for other reason; Z28.21 Immunization not carried out because of patient refusal; Z86.14 Personal history of Methicillin resistant Staphylococcus aureus infection
CPT/HCPCS: 36415; 51702; 71045; 80048; 80053; 80061; 83036; 83605; 83880; 84484; 85025; 85610; 85730; 86706; 87340; 90935; 93005; 94660; 94760; 96374; 96375; 99285

== ENCOUNTER 2022-05-10 16:15 | Inpatient (IN) | payer MEDICARE, OTHER ==
[2022-05-10 18:51] LABS: Basophils # (A) 0.1 k/uL (0-0.2); Basophils % (A) 1 %; Eosinophils # (A) 0.3 k/uL (0-0.7); Eosinophils % (A) 4 %; HGB 9.2 gm/dL (13.0-17.5); Hypochromasia Marked; Lymphocytes # (A) 1.7 k/uL (1.0-4.8); Lymphocytes % (A) 19 %; MCH 28.9 pg (25.0-35.0); MCHC 30.6 g/dL (31.0-37.0); MCV 94.7 fL (80.0-100.0); Mean Platelet Volume 7.4; Monocytes # (A) 0.5 k/uL (0-1.0); Monocytes % (A) 5 %; Neutrophils # (A) 6.2 k/uL (1.3-7.7); Neutrophils % (A) 70 %; Platelet Count 365 k/uL (150-450); RBC 3.17 m/uL (4.30-5.90); RDW 14.3 % (11.5-15.5); WBC 8.9 k/uL (3.8-10.6)
[2022-05-10 19:05] LABS: Albumin 4.2 g/dL (3.5-5.0); Total Bilirubin 0.6 mg/dL (0.2-1.3); Total Protein 7.5 g/dL (6.3-8.2)
[2022-05-10 19:18] LABS: Potassium 6.2 mmol/L (3.5-5.1)
--- NOTE | 2022-05-10 19:33 | XR ---
EXAMINATION TYPE: XR chest 2V DATE OF EXAM: 05/10/2022 COMPARISON: NONE HISTORY: Weakness TECHNIQUE: 2 view FINDINGS: There is no heart failure nor confluent pneumonic infiltrate. Costophrenic angles are clear . There are no hilar masses. The bony thorax is intact. There is slight elevation of the right diaphr agm. IMPRESSION: No active cardiopulmonary disease. No change. Mild chronic elevation of the right diaphra gm.
[2022-05-10] MEDS ORDERED: ONDANSETRON 4 MG/2 ML VIAL IVP STA (20:43)
[2022-05-10 20:47] LABS: Albumin 3.8 g/dL (3.5-5.0); Calcium 7.9 mg/dL (8.4-10.2); Potassium 5.8 mmol/L (3.5-5.1); Total Bilirubin 0.5 mg/dL (0.2-1.3); Total Protein 6.7 g/dL (6.3-8.2)
[2022-05-10] MEDS ORDERED: CALCIUM CARBONATE 500 MG CHEWABLE PO STA (21:46)
--- NOTE | 2022-05-10 21:52 | ED ---
Weakness HPI - General Chief complaint: Weakness Stated complaint: Weakness Time Seen by Provider: 05/10/22 18:34 Source: patient Mode of arrival: wheelchair Limitations: no limitations - History of Present Illness Initial comments: Patient is a 47-year-old male with a history of COPD and end-stage renal disease on hemodialysis / who presents to the emergency department with a chief complaint of weakness. Patient states he had to rearrange his dialysis scheduled this week due to other doctor appointments. Last dialysis was on Tuesday. Patient's next dialysis session is tomorrow morning. Patient states he feels weak, nauseous, short of breath. Denies fever, chills, chest pain, vomiting, abdominal pain. Patient uses CPAP at home and states he sometimes wears supplemental oxygen at 2 L however has been out of prescription for a few months. - Related Data Home Medications Medication Instructions Recorded Confirmed ALPRAZolam [Xanax] 0.5 mg PO HS 03/29/22 04/27/22 Calcium Acetate [PhosLo] 2,001 mg PO TID-W/MEALS 03/29/22 04/27/22 Dialyvite 1 tab PO DAILY 03/29/22 04/27/22 Gabapentin 300 mg PO HS 03/29/22 04/27/22 Gabapentin [Neurontin] 300 mg PO DAILY PRN 03/29/22 04/27/22 HYDROcodone/APAP 7.5-325MG [[place] 1 tab PO TID PRN 03/29/22 04/27/22 7.5-325] INSULIN ASPART (NovoLOG) [NovoLOG See Protocol SQ TID-W/MEALS PRN 03/29/22 04/27/22 (formulary)] Lidocaine-Prilocaine Cream [Emla 1 applic TOPICAL DAILY PRN 03/29/22 04/27/22 Cream 2.5%/2.5%] Omeprazole 40 mg PO BID 03/29/22 04/27/22 Sodium Bicarbonate Tab 650 mg PO BID 03/29/22 04/27/22 Sucralfate [Carafate] 1 gm PO QID 03/29/22 04/27/22 Testosterone Cypionate 200 mg IM Q14D 03/29/22 04/27/22 [Depo-Testosterone] calcitrioL [Calcitriol] 1.5 mcg PO DAILY 03/29/22 04/27/22 rOPINIRole HCL [Requip] 0.5 mg PO HS 03/29/22 04/27/22 Previous Rx's Medication Instructions Recorded Bumetanide [BUMEX] 2 mg PO BID #30 tab 03/31/22 Levothyroxine Sodium [Synthroid] 25 mcg PO DAILY #30 tab 03/31/22 Losartan Potassium 100 mg PO HS #30 tab 03/31/22 amLODIPine [Norvasc] 5 mg PO DAILY #30 tab 03/31/22 carvediloL 12.5 mg PO BID #30 tab 03/31/22 Allergies Allergy/AdvReac Type Severity Reaction Status Date / Time No Known Allergies Allergy Verified 05/10/22 17:09 Review of Systems ROS Statement: Those systems with pertinent positive or pertinent negative responses have been documented in the HPI. ROS Other: All systems not noted in ROS Statement are negative. Past Medical History Past Medical History: Heart Failure, Diabetes Mellitus, Dialysis, Renal Disease, Sleep Apnea/CPAP/BIPAP Additional Past Medical History / Comment(s): . History of Any Multi-Drug Resistant Organisms: MRSA Date of last positivie culture/infection: 2009 MDRO Source:: neck Past Surgical History: No Surgical Hx Reported Additional Past Surgical History / Comment(s): dilaysis cath, gastric isabella and y Past Anesthesia/Blood Transfusion Reactions: No Reported Reaction Past Psychological History: Anxiety, Depression Smoking Status: Never smoker Past Alcohol Use History: None Reported Past Drug Use History: None Reported General Exam Limitations: no limitations General appearance: alert, in no apparent distress Head exam: Present: atraumatic, normocephalic, normal inspection Respiratory exam: Present: normal lung sounds bilaterally. Absent: respiratory distress, wheezes, rales, rhonchi, stridor Cardiovascular Exam: Present: regular rate, normal rhythm, normal heart sounds. Absent: systolic murmur, diastolic murmur, rubs, gallop, clicks GI/Abdominal exam: Present: soft, normal bowel sounds. Absent: distended, tenderness, guarding, rebound, rigid Extremities exam: Present: normal inspection, full ROM, pedal edema (1+) Neurological exam: Present: alert, oriented X3, CN II-XII intact Psychiatric exam: Present: normal affect, normal mood Skin exam: Present: warm, dry, intact, normal color. Absent: rash Course Vital Signs 05/10/22 05/10/22 17:06 20:09 Temperature 98.5 F Pulse Rate 71 79 Respiratory 16 18 Rate Blood Pressure 126/75 125/89 O2 Sat by Pulse 93 L 95 Oximetry Medical Decision Making - Medical Decision Making This is a 47-year-old male seeking dialysis treatment. Thorough history and examination were performed. Patient appears to be mildly fluid overloaded with 1+ pitting edema. Laboratory studies obtained. Creatinine is elevated at 13.82, BUN elevated at 81. Potassium is elevated at 5.8. Calcium is low at 7.9. Case discussed with Dr. Johnson who excepts consult with dialysis in the morning. Case discussed with Dr. Rojas who accepts admission. Dr. Poole is my attending. - Lab Data Result diagrams: 05/10/22 18:39 05/10/22 20:05 Lab Results 05/10/22 05/10/22 05/10/22 Range/Units 18:39 18:39 18:56 WBC 8.9 (3.8-10.6) k/uL RBC 3.17 L (4.30-5.90) m/uL Hgb 9.2 L (13.0-17.5) gm/dL Hct 30.0 L (39.0-53.0) % MCV 94.7 (80.0-100.0) fL MCH 28.9 (25.0-35.0) pg MCHC 30.6 L (31.0-37.0) g/dL RDW 14.3 (11.5-15.5) % Plt Count 365 (150-450) k/uL MPV 7.4 Neutrophils % 70 % Lymphocytes % 19 % Monocytes % 5 % Eosinophils % 4 % Basophils % 1 % Neutrophils # 6.2 (1.3-7.7) k/uL Lymphocytes # 1.7 (1.0-4.8) k/uL Monocytes # 0.5 (0-1.0) k/uL Eosinophils # 0.3 (0-0.7) k/uL Basophils # 0.1 (0-0.2) k/uL Hypochromasia Marked Sodium 142 (137-145) mmol/L Potassium 6.2 H* (3.5-5.1) mmol/L Chloride 99 (98-107) mmol/L Carbon Dioxide 23 (22-30) mmol/L Anion Gap 20 mmol/L BUN 84 H (9-20) mg/dL Creatinine 13.53 H* (0.66-1.25) mg/dL Est GFR (CKD-EPI)AfAm 4 (>60 ml/min/1.73 sqM) Est GFR (CKD-EPI)NonAf 4 (>60 ml/min/1.73 sqM) Glucose 138 H (74-99) mg/dL Calcium 8.0 L (8.4-10.2) mg/dL Total Bilirubin 0.6 (0.2-1.3) mg/dL AST 31 (17-59) U/L ALT 19 (4-49) U/L Alkaline Phosphatase 78 (38-126) U/L Troponin I <0.012 (0.000-0.034) ng/mL Total Protein 7.5 (6.3-8.2) g/dL Albumin 4.2 (3.5-5.0) g/dL 05/10/22 Range/Units 20:05 WBC (3.8-10.6) k/uL RBC (4.30-5.90) m/uL Hgb (13.0-17.5) gm/dL Hct (39.0-53.0) % MCV (80.0-100.0) fL MCH (25.0-35.0) pg MCHC (31.0-37.0) g/dL RDW (11.5-15.5) % Plt Count (150-450) k/uL MPV Neutrophils % % Lymphocytes % % Monocytes % % Eosinophils % % Basophils % % Neutrophils # (1.3-7.7) k/uL Lymphocytes # (1.0-4.8) k/uL Monocytes # (0-1.0) k/uL Eosinophils # (0-0.7) k/uL Basophils # (0-0.2) k/uL Hypochromasia Sodium 141 (137-145) mmol/L Potassium 5.8 H (3.5-5.1) mmol/L Chloride 99 (98-107) mmol/L Carbon Dioxide 24 (22-30) mmol/L Anion Gap 18 mmol/L BUN 81 H (9-20) mg/dL Creatinine 13.82 H* (0.66-1.25) mg/dL Est GFR (CKD-EPI)AfAm 4 (>60 ml/min/1.73 sqM) Est GFR (CKD-EPI)NonAf 4 (>60 ml/min/1.73 sqM) Glucose 155 H (74-99) mg/dL Calcium 7.9 L (8.4-10.2) mg/dL Total Bilirubin 0.5 (0.2-1.3) mg/dL AST 20 (17-59) U/L ALT 18 (4-49) U/L Alkaline Phosphatase 87 (38-126) U/L Troponin I (0.000-0.034) ng/mL Total Protein 6.7 (6.3-8.2) g/dL Albumin 3.8 (3.5-5.0) g/dL Disposition Clinical Impression: ESRD (end stage renal disease) on dialysis, Shortness of breath, Weakness Disposition: ADMITTED IP TO THIS [facility] Condition: Good Referrals: Nonstaff,Physician [Primary Care Provider] - 1-2 days Decision Time: 21:55
[2022-05-10] MEDS ORDERED: GABAPENTIN 300 MG CAP PO PRN (21:58)
[2022-05-10] MEDS ORDERED: ALPRAZolam 0.5 MG TAB PO SCH (22:00)
[2022-05-10] MEDS ORDERED: carvediloL 12.5 MG TAB PO SCH (22:00)
[2022-05-10] MEDS ORDERED: amLODIPine 5 MG TAB PO SCH (22:00)
[2022-05-10] MEDS ORDERED: DEXTROSE 50% SYRINGE 50 ML IVP PRN ×2 (22:07)
[2022-05-10] MEDS ORDERED: GABAPENTIN 300 MG CAP PO SCH (22:15)
[2022-05-10] MEDS ORDERED: LOSARTAN 50 MG TAB PO SCH (22:15)
[2022-05-11] MEDS: PANTOPRAZOLE 40 MG TABLET PO SCH ×2 (00:10→07:13)
[2022-05-11] MEDS: BUMETANIDE 1 MG TAB PO SCH ×2 (00:10→10:09)
[2022-05-11] MEDS: HYDROcodone/APAP 7.5-325MG 1 EACH TAB PO PRN ×2 (00:11→10:11)
[2022-05-11] MEDS: SUCRALFATE 1 GM TAB PO SCH ×2 (00:35→10:08)
[2022-05-11] MEDS ORDERED: INSULIN REGULAR 100 UNIT/ML VIAL (IV) IV ONE (03:37)
[2022-05-11] MEDS ORDERED: DEXTROSE 50% SYRINGE 50 ML IVP STA (03:37)
--- NOTE | 2022-05-11 03:47 | P.HPIM ---
History of Present Illness H&P Date: 05/10/22 Chief Complaint: shortness of breath , cramps in his legs 47 year old male with ESRD on HD TTS. patient had to reschedule his dialysis sessions last week, and his last session was on Tuesday. today he is presented feeling congested, fluid overloaded. and having cramps in his legs. he is feeling weak with some shortness of breath and cant get comfortable. he came in today seeking HD as he did not feel that he can wait until tomorrow . he otherwise denies any fever, chills, cough, chest pain, nausea vomiting, abd pain or GI bleeding workup in the ED showed CXR with no acute pathology , no fluid over load K slightly elevated 6.2 improved to 5.8 patient voiced dissatisfaction with his HD place, and hoping that he gets couple sessions here at the hospital until he gets his home HD setup later this week Review of Systems Pertinent positives as noted in HPI. All other systems were reviewed and are negative Past Medical History Past Medical History: Heart Failure, Diabetes Mellitus, Dialysis, Renal Disease, Sleep Apnea/CPAP/BIPAP Additional Past Medical History / Comment(s): . History of Any Multi-Drug Resistant Organisms: MRSA Date of last positivie culture/infection: 2009 MDRO Source:: neck Past Surgical History: No Surgical Hx Reported Additional Past Surgical History / Comment(s): dilaysis cath, gastric isabella and y Past Anesthesia/Blood Transfusion Reactions: No Reported Reaction Past Psychological History: Anxiety, Depression Smoking Status: Never smoker Past Alcohol Use History: None Reported Past Drug Use History: None Reported - Past Family History family Additional Family Medical History / Comment(s): denies renal disease or heart disease in the family Medications and Allergies Home Medications Medication Instructions Recorded Confirmed Type ALPRAZolam [Xanax] 0.5 mg PO HS 03/29/22 05/10/22 History Dialyvite 1 tab PO DAILY 03/29/22 05/10/22 History Gabapentin 300 mg PO HS 03/29/22 05/10/22 History Gabapentin [Neurontin] 300 mg PO DAILY PRN 03/29/22 05/10/22 History HYDROcodone/APAP 7.5-325MG [[place] 1 tab PO TID PRN 03/29/22 05/10/22 History 7.5-325] INSULIN ASPART (NovoLOG) [NovoLOG See Protocol SQ TID-W/MEALS PRN 03/29/22 05/10/22 History (formulary)] Lidocaine-Prilocaine Cream [Emla 1 applic TOPICAL DAILY PRN 03/29/22 05/10/22 History Cream 2.5%/2.5%] Omeprazole 40 mg PO BID 03/29/22 05/10/22 History Sodium Bicarbonate Tab 650 mg PO BID 03/29/22 05/10/22 History Sucralfate [Carafate] 1 gm PO QID 03/29/22 05/10/22 History Testosterone Cypionate 200 mg IM Q14D 03/29/22 05/10/22 History [Depo-Testosterone] calcitrioL [Calcitriol] 1 mcg PO DAILY 03/29/22 05/10/22 History rOPINIRole HCL [Requip] 0.5 mg PO HS 03/29/22 05/10/22 History Bumetanide [BUMEX] 2 mg PO BID #30 tab 03/31/22 05/10/22 Rx Levothyroxine Sodium [Synthroid] 25 mcg PO DAILY #30 tab 03/31/22 05/10/22 Rx Losartan Potassium 100 mg PO HS #30 tab 03/31/22 05/10/22 Rx carvediloL 12.5 mg PO BID #30 tab 03/31/22 05/10/22 Rx Velphoro 500mg Chewable Tab 1,000 mg PO TID-W/MEALS 05/10/22 05/10/22 History amLODIPine [Norvasc] 10 mg PO DAILY 05/10/22 05/10/22 History Allergies Allergy/AdvReac Type Severity Reaction Status Date / Time No Known Allergies Allergy Verified 05/10/22 22:41 Physical Exam Vitals: Vital Signs Temp Pulse Resp BP Pulse Ox 05/10/22 20:09 79 18 125/89 95 05/10/22 17:06 98.5 F 71 16 126/75 93 L Intake and Output 05/10/22 05/10/22 05/11/22 14:59 22:59 06:59 Other: Weight 156.489 kg Constitutional: No acute distress, morbidly obese Eyes: Anicteric sclerae, moist conjunctiva, Pupils equal round reactive to light ENMT: NC/AT Oropharynx clear, no erythema, or exudates Neck: Supple, o masses, or JVD No carotid bruits No thyromegaly Lungs: Clear to auscultation Clear to percussion Normal respiratory effort, no accessory muscle use Cardiovascular: Heart regular in rate and rhythm, No murmurs, gallops, or rubs trace bilateral peripheral edema Abdominal: Soft Nontender, no guarding, rebound or rigidity Abdomen moving with respiration Normoactive bowel sounds No hepatomegaly, No splenomegaly No palpable mass No abdominal wall hernia noted Skin: Normal temperature, tone, texture, turgor No induration No subcutaneous nodules No rash, lesions No ulcers Extremities: No digital cyanosis No clubbing Pedal pulses intact and symmetrical Radial pulses intact and symmetrical No calf tenderness Psychiatric: Alert and oriented to person, place and time Appropriate affect fair judgement Neuro Muscles Strength 5/5 in all 4 extremities Sensation to light touch grossly present throughout Cranial nerves II-XII grossly intact No focal sensory deficits Lymphatics: no palpable cervical or supraclavicular , or inguinal lymph nodes Results CBC & Chem 7: 05/10/22 18:39 05/10/22 20:05 Labs: Abnormal Lab Results - Last 24 Hours (Table) 05/10/22 05/10/22 05/10/22 Range/Units 18:39 18:39 20:05 RBC 3.17 L (4.30-5.90) m/uL Hgb 9.2 L (13.0-17.5) gm/dL Hct 30.0 L (39.0-53.0) % MCHC 30.6 L (31.0-37.0) g/dL Potassium 6.2 H* 5.8 H (3.5-5.1) mmol/L BUN 84 H 81 H (9-20) mg/dL Creatinine 13.53 H* 13.82 H* (0.66-1.25) mg/dL Glucose 138 H 155 H (74-99) mg/dL Calcium 8.0 L 7.9 L (8.4-10.2) mg/dL Assessment and Plan Assessment: ESRD on hemodialysis hyperkalemia last session 3 days ago shortness of breath and congestion CXR no acute pathology nephrology consult for HD potassium lowerin gcocktail with D50 and IV insulin follow up K 5.8 resume home meds bicarb PO Ca citrate chronic conditions DM , insulin sliding scale DIOGENES , encourage to use Bipap peripheral neuropathy , gabapentine COPD compensated , resume inhalers, supplemental oxygen as needed hypertension , resume amlodipine, coreg , losartan DVT PPX heparin sc tid full code
[2022-05-11 05:07] VITALS: RESP 18
[2022-05-11] MEDS ORDERED: LEVOTHYROXINE 25 MCG TAB PO SCH (06:30)
[2022-05-11 07:01] LABS: Glucose,Whole Blood 154 mg/dL (70-110)
[2022-05-11] MEDS ORDERED: CALCIUM ACETATE 667 MG TAB PO SCH (07:30)
[2022-05-11] MEDS ORDERED: INSULIN ASPART (NovoLOG) 100 UNIT/ML VIAL SQ SCH (07:30)
[2022-05-11] MEDS ORDERED: HEPARIN SODIUM,PORCINE/PF 5,000 UNIT/0.5 ML SYRINGE SQ SCH (08:00)
[2022-05-11] MEDS ORDERED: SODIUM BICARBONATE TAB 650 MG TAB PO SCH (09:00)
[2022-05-11] MEDS ORDERED: FOLIC ACID-VIT B COMPLEX-VIT C 1 CAP PO SCH (09:00)
--- NOTE | 2022-05-11 11:09 | P.PN ---
Subjective Progress Note Date: 05/11/22 No new complaints, resting comfortably in bed with a CPAP machine. Pending nephrology consult and hemodialysis session. Gen: Asleep, arousable HEENT: normocephalic, atraumatic, good hearing acuity, moist mucous membranes Resp: good air exchange, breathing comfortably with no accessory muscle use CVS: good distal perfusion x 4, GI: soft, NTTP, ND : no SPT, no CVAT, carter catheter not present MSK: no pitting edema, no clubbing Neuro: non-focal, moving all extremities Psych: cooperative, euthymic mood Assessment/plan: ESRD on Hemodialysis Hyperkalemia -nephrology consult for HD -potassium lowerin gcocktail with D50 and IV insulin -follow up K 5.8 -resume home meds -bicarb PO -Ca citrate DM Type II with peripheral neuropathy DIOGENES COPD without exacerbation Hypertension -Home medications reviewed and reconciled DVT PPX heparin sc tid Full code Objective - Vital Signs Vital signs: Vital Signs Temp 97.7 F 05/11/22 06:00 Pulse 73 05/11/22 05:04 Resp 18 05/11/22 05:04 BP 96/65 05/11/22 05:04 Pulse Ox 94 L 05/11/22 05:04 FiO2 32 05/11/22 02:51 Intake & Output 05/10/22 05/11/22 05/11/22 18:59 06:59 18:59 Weight 156.489 kg - Labs CBC & Chem 7: 05/10/22 18:39 05/10/22 20:05 Labs: Abnormal Lab Results - Last 24 Hours (Table) 05/10/22 05/10/22 05/10/22 Range/Units 18:39 18:39 18:39 RBC 3.17 L (4.30-5.90) m/uL Hgb 9.2 L (13.0-17.5) gm/dL Hct 30.0 L (39.0-53.0) % MCHC 30.6 L (31.0-37.0) g/dL Potassium 6.2 H* (3.5-5.1) mmol/L BUN 84 H (9-20) mg/dL Creatinine 13.53 H* (0.66-1.25) mg/dL Glucose 138 H (74-99) mg/dL POC Glucose (mg/dL) (70-110) mg/dL Hemoglobin A1c 7.2 H (0.0-6.0) % Calcium 8.0 L (8.4-10.2) mg/dL 05/10/22 05/11/22 Range/Units 20:05 06:58 RBC (4.30-5.90) m/uL Hgb (13.0-17.5) gm/dL Hct (39.0-53.0) % MCHC (31.0-37.0) g/dL Potassium 5.8 H (3.5-5.1) mmol/L BUN 81 H (9-20) mg/dL Creatinine 13.82 H* (0.66-1.25) mg/dL Glucose 155 H (74-99) mg/dL POC Glucose (mg/dL) 154 H (70-110) mg/dL Hemoglobin A1c (0.0-6.0) % Calcium 7.9 L (8.4-10.2) mg/dL
[2022-05-11 11:17] VITALS: PULSE 87; TEMP 97.8
[2022-05-11 12:21] LABS: Glucose,Whole Blood 143 mg/dL (70-110)
[2022-05-12 10:17] VITALS: BP 149/76
--- NOTE | 2022-05-13 02:35 | CONS ---
CONSULTATION REASON FOR CONSULTATION: End-stage renal disease. HISTORY OF PRESENT ILLNESS: The patient is a 47-year-old male with end-stage renal disease, maintained on hemodialysis on a Tuesday, , Tuesday schedule. The patient was admitted to the hospital with complaints of shortness of breath and increased weakness. He was not able to make it to his dialysis. He is scheduled for hemodialysis today in the hospital. The patient denies missing any treatments. He denies any fevers or chills. No significant nausea or vomiting. PAST MEDICAL HISTORY: End-stage renal disease, secondary hyperparathyroidism, anemia of chronic disease, type 2 diabetes, obstructive sleep apnea, CHF. PAST SURGICAL HISTORY: Dialysis catheter placement, AV fistula, gastric bypass. SOCIAL HISTORY: Negative for smoking, drug abuse, or alcohol abuse. MEDICATIONS: Medications prior to admission included, 1. Dialyvite. 2. Gabapentin. 3. Neurontin. 4. Xanax. 5. Insulin. 6. Sodium bicarb. 7. Carafate. 8. Calcitriol. 9. Bumex. 10.Requip. 11.Synthroid. 12.Losartan. 13.Carvedilol. 14.Velphoro. 15.Amlodipine. ALLERGIES: None. REVIEW OF SYSTEMS: As per HPI. Other systems negative. PHYSICAL EXAMINATION: GENERAL: The patient is comfortable, awake, not in any acute distress. Alert, oriented x3. VITAL SIGNS: Blood pressure is 149/76, heart rate of 87 per minute. The patient is afebrile. HEART: S1 and S2. LUNGS: Bilateral breath sounds are heard. ABDOMEN: Soft, nontender. EXTREMITIES: Lower extremities shows edema 1+ bilaterally. FICTION AND NONFICTION AUTHOR: Grossly intact. LABORATORY DATA: Show sodium 142, potassium 6.2, BUN 84, serum creatinine 13.5. ASSESSMENT: 1. End-stage renal disease, on hemodialysis, on Tuesday, , Tuesday schedule via left arm AV fistula. 2. Volume overload. 3. Hyperkalemia associated with end-stage renal disease. 4. Type 2 diabetes. 5. Chronic kidney disease, mineral bone disorder. PLAN: Hemodialysis today and then repeat again in a.m. The patient will be dialyzed again on at his regular treatment day. This can be done as outpatient as well. Thank you for the consultation. We will continue to follow the patient with you during his hospitalization. MMODL / IJN: [id number] /
--- NOTE | 2022-05-13 09:17 | P.DS ---
Providers Date of admission: 05/10/22 22:40 Expected date of discharge: 05/13/22 Attending physician: Yulisa Rojas MD Consults: 05/10/22 21:56 Consult Physician Routine Consulting Provider: Jeimy Johnson Consult Reason/Comments: renal failure, hyperkalemia, needs dialysis Do you want consulting provider notified?: Already Contacted Primary care physician: Physician Nonstaff Hospital Course: ESRD Hyperkalemia 47 year old male with ESRD on HD TTS presented feeling congested, fluid overloaded. and having cramps in his legs. Workup in the ED showed CXR with no acute pathology , no fluid over load, K slightly elevated 6.2 improved to 5.8 with shifting agents. Patient was admitted with plan for dialysis then discharge after re-evaluation, he did receive one dialysis session but left against medical advice prior to re-evaluation. Patient Condition at Discharge: Serious Plan - Discharge Summary New Discharge Prescriptions: No Action Sucralfate [Carafate] 1 gm PO QID rOPINIRole HCL [Requip] 0.5 mg PO HS INSULIN ASPART (NovoLOG) [NovoLOG (formulary)] See Protocol SQ TID-W/MEALS PRN PRN Reason: high blood sugar HYDROcodone/APAP 7.5-325MG [[place] 7.5-325] 1 tab PO TID PRN PRN Reason: Pain calcitrioL [Calcitriol] 1 mcg PO DAILY Testosterone Cypionate [Depo-Testosterone] 200 mg IM Q14D Sodium Bicarbonate Tab 650 mg PO BID Bumetanide [BUMEX] 2 mg PO BID #30 tab carvediloL 12.5 mg PO BID #30 tab Levothyroxine Sodium [Synthroid] 25 mcg PO DAILY #30 tab Omeprazole 40 mg PO BID Lidocaine-Prilocaine Cream [Emla Cream 2.5%/2.5%] 1 applic TOPICAL DAILY PRN PRN Reason: before dialysis Gabapentin [Neurontin] 300 mg PO DAILY PRN PRN Reason: nerve pain Gabapentin 300 mg PO HS Dialyvite 1 tab PO DAILY ALPRAZolam [Xanax] 0.5 mg PO HS Losartan Potassium 100 mg PO HS #30 tab amLODIPine [Norvasc] 10 mg PO DAILY Velphoro 500mg Chewable Tab 1,000 mg PO TID-W/MEALS Discharge Medication List ALPRAZolam [Xanax] 0.5 mg PO HS 03/29/22 [History] Dialyvite 1 tab PO DAILY 03/29/22 [History] Gabapentin 300 mg PO HS 03/29/22 [History] Gabapentin [Neurontin] 300 mg PO DAILY PRN 03/29/22 [History] HYDROcodone/APAP 7.5-325MG [[place] 7.5-325] 1 tab PO TID PRN 03/29/22 [History] INSULIN ASPART (NovoLOG) [NovoLOG (formulary)] See Protocol SQ TID-W/MEALS PRN 03/29/22 [History] Lidocaine-Prilocaine Cream [Emla Cream 2.5%/2.5%] 1 applic TOPICAL DAILY PRN 03/29/22 [History] Omeprazole 40 mg PO BID 03/29/22 [History] Sodium Bicarbonate Tab 650 mg PO BID 03/29/22 [History] Sucralfate [Carafate] 1 gm PO QID 03/29/22 [History] Testosterone Cypionate [Depo-Testosterone] 200 mg IM Q14D 03/29/22 [History] calcitrioL [Calcitriol] 1 mcg PO DAILY 03/29/22 [History] rOPINIRole HCL [Requip] 0.5 mg PO HS 03/29/22 [History] Bumetanide [BUMEX] 2 mg PO BID #30 tab 03/31/22 [Rx] Levothyroxine Sodium [Synthroid] 25 mcg PO DAILY #30 tab 03/31/22 [Rx] Losartan Potassium 100 mg PO HS #30 tab 03/31/22 [Rx] carvediloL 12.5 mg PO BID #30 tab 03/31/22 [Rx] Velphoro 500mg Chewable Tab 1,000 mg PO TID-W/MEALS 05/10/22 [History] amLODIPine [Norvasc] 10 mg PO DAILY 05/10/22 [History] Follow up Appointment(s)/Referral(s): Nonstaff,Physician [Primary Care Provider] - 1-2 days Discharge Disposition: Left Against Medical Advice
== END 2022-05-11 22:12 | disposition left against medical advice (07) | DRG 291 ==
LOC: EC 16:15 → 4SSUR 22:40
PROVIDERS: ADMIT Internal Medicine; ATTEND Internal Medicine
DX: I13.2 Hypertensive heart and chronic kidney disease with heart failure and with stage 5 chronic kidney disease, or end stage renal disease (principal); N18.6 End stage renal disease; E11.22 Type 2 diabetes mellitus with diabetic chronic kidney disease; I50.9 Heart failure, unspecified; Z53.29 Procedure and treatment not carried out because of patient's decision for other reasons; J44.9 Chronic obstructive pulmonary disease, unspecified; E11.42 Type 2 diabetes mellitus with diabetic polyneuropathy; E87.5 Hyperkalemia; F32.A Depression, unspecified; F41.9 Anxiety disorder, unspecified; G47.33 Obstructive sleep apnea (adult) (pediatric); Z79.890 Hormone replacement therapy; Z79.899 Other long term (current) drug therapy; Z99.2 Dependence on renal dialysis; Z86.14 Personal history of Methicillin resistant Staphylococcus aureus infection; Z79.4 Long term (current) use of insulin
CPT/HCPCS: 36415; 71046; 80053; 83036; 84484; 85025; 90935; 93005; 94660; 96372; 96374; 96375; 99285

== ENCOUNTER 2022-06-03 20:25 | Observation (INO) | payer MEDICARE, OTHER ==
[2022-06-03 20:52] VITALS: RESP 18
[2022-06-03 21:51] LABS: Basophils % (A) 1 %; Eosinophils # (A) 0.2 k/uL (0-0.7); Eosinophils % (A) 3 %; HCT 33.8 % (39.0-53.0); HGB 10.7 gm/dL (13.0-17.5); Hypochromasia Moderate; Lymphocytes # (A) 0.5 k/uL (1.0-4.8); Lymphocytes % (A) 8 %; MCH 28.6 pg (25.0-35.0); MCHC 31.6 g/dL (31.0-37.0); MCV 90.2 fL (80.0-100.0); Mean Platelet Volume 8.7; Monocytes # (A) 0.6 k/uL (0-1.0); Monocytes % (A) 9 %; Neutrophils # (A) 4.7 k/uL (1.3-7.7); Neutrophils % (A) 78 %; RBC 3.74 m/uL (4.30-5.90); RDW 14.1 % (11.5-15.5)
[2022-06-03 21:56] VITALS: BP 154/76; PULSE 91; TEMP 100.1
[2022-06-03 21:56] LABS: Platelet Count 179 k/uL (150-450)
--- NOTE | 2022-06-03 21:56 | ED ---
General Adult HPI - General Chief complaint: Chest Pain Stated complaint: Flu-like symptoms Time Seen by Provider: 06/03/22 20:45 Source: patient, family Mode of arrival: EMS - History of Present Illness Initial comments: Patient is a 47-year-old male presents the emergency room with complaints of chest pain and shortness of breath along with fevers which began earlier today. He is a home hemodialysis patient and his reports that his last hemodialysis treatment was yesterday which was tolerated well however due to generalized malaise his treatment for today was deferred. He had blood work completed at dialysis last week which revealed chronic elevation in potassium, phosphorus and chronic anemia. He has not been tested for COVID or influenza. Due to generalized malaise at his nephrology appointment earlier today he did not receive his influenza vaccination or his Micera injection. He denies any headache, dizziness, abdominal pain, nausea, or vomiting. In addition to his end-stage renal disease with secondary diagnoses he has a past medical history significant for diabetes type 1, hypertension, hyperlipidemia, CHF and obstructive sleep apnea. - Related Data Home Medications Medication Instructions Recorded Confirmed ALPRAZolam [Xanax] 0.5 mg PO HS 03/29/22 05/10/22 Dialyvite 1 tab PO DAILY 03/29/22 05/10/22 Gabapentin 300 mg PO HS 03/29/22 05/10/22 Gabapentin [Neurontin] 300 mg PO DAILY PRN 03/29/22 05/10/22 HYDROcodone/APAP 7.5-325MG [[place] 1 tab PO TID PRN 03/29/22 05/10/22 7.5-325] INSULIN ASPART (NovoLOG) [NovoLOG See Protocol SQ TID-W/MEALS PRN 03/29/22 05/10/22 (formulary)] Lidocaine-Prilocaine Cream [Emla 1 applic TOPICAL DAILY PRN 03/29/22 05/10/22 Cream 2.5%/2.5%] Omeprazole 40 mg PO BID 03/29/22 05/10/22 Sodium Bicarbonate Tab 650 mg PO BID 03/29/22 05/10/22 Sucralfate [Carafate] 1 gm PO QID 03/29/22 05/10/22 Testosterone Cypionate 200 mg IM Q14D 03/29/22 05/10/22 [Depo-Testosterone] calcitrioL [Calcitriol] 1 mcg PO DAILY 03/29/22 05/10/22 rOPINIRole HCL [Requip] 0.5 mg PO HS 03/29/22 05/10/22 Velphoro 500mg Chewable Tab 1,000 mg PO TID-W/MEALS 05/10/22 05/10/22 amLODIPine [Norvasc] 10 mg PO DAILY 05/10/22 05/10/22 Previous Rx's Medication Instructions Recorded Bumetanide [BUMEX] 2 mg PO BID #30 tab 03/31/22 Levothyroxine Sodium [Synthroid] 25 mcg PO DAILY #30 tab 03/31/22 Losartan Potassium 100 mg PO HS #30 tab 03/31/22 carvediloL 12.5 mg PO BID #30 tab 03/31/22 Allergies Allergy/AdvReac Type Severity Reaction Status Date / Time No Known Allergies Allergy Verified 05/10/22 22:41 Review of Systems ROS Statement: Those systems with pertinent positive or pertinent negative responses have been documented in the HPI. ROS Other: All systems not noted in ROS Statement are negative. Past Medical History Past Medical History: Heart Failure, Diabetes Mellitus, Dialysis, Renal Disease, Sleep Apnea/CPAP/BIPAP Additional Past Medical History / Comment(s): . History of Any Multi-Drug Resistant Organisms: MRSA Date of last positivie culture/infection: 2009 MDRO Source:: neck Past Surgical History: No Surgical Hx Reported Additional Past Surgical History / Comment(s): dilaysis cath, gastric isabella and y Past Anesthesia/Blood Transfusion Reactions: No Reported Reaction Past Psychological History: Anxiety, Depression Smoking Status: Never smoker Past Alcohol Use History: None Reported Past Drug Use History: None Reported - Past Family History family Additional Family Medical History / Comment(s): denies renal disease or heart disease in the family General Exam General appearance: alert, in no apparent distress Head exam: Present: atraumatic, normocephalic, normal inspection Eye exam: Present: normal appearance, PERRL, EOMI. Absent: scleral icterus, conjunctival injection, periorbital swelling ENT exam: Present: normal exam, mucous membranes moist Neck exam: Present: normal inspection Respiratory exam: Present: decreased breath sounds (Bibasilar likely secondary to body habitus). Absent: respiratory distress, wheezes, rales, rhonchi, st ridor, accessory muscle use Cardiovascular Exam: Present: regular rate, normal rhythm, normal heart sounds. Absent: systolic murmur, diastolic murmur, rubs, gallop, clicks Extremities exam: Present: normal inspection, pedal edema (Bilateral lower ex tremity edema posterior) Back exam: Present: normal inspection Neurological exam: Present: alert, oriented X3, CN II-XII intact Psychiatric exam: Present: normal affect, normal mood Skin exam: Present: other (Left upper extremity AV fistula +/+) Course Vital Signs 06/03/22 06/03/22 06/03/22 20:25 20:51 20:52 Temperature 101.1 F H 100.1 F H Pulse Rate 90 91 Respiratory 18 17 18 Rate Blood Pressure 156/82 154/76 O2 Sat by Pulse 100 97 Oximetry Medical Decision Making - Medical Decision Making 47-year-old male presenting to the emergency room with chest pain shortness of breath generalized malaise, headache CONSISTENT with Covid-like symptoms however given past medical history of CAD, hypertension, diabetes and dialysis high risk for ACS. Will check COVID swallow along with workup for ACS including CBC, CMP, troponin, proBNP, d-dimer, EKG and chest x-ray. Avoid NSAIDs due to end-stage renal disease will give Tylenol for fever. EKG shows sinus rhythm. Chest x-ray shows mild subsegmental atelectasis. D-dimer elevated however likely secondary to positive Covid rather than pulmonary emboli. Due to body habitus and renal status poor candidate for VQ scan for CTA. Discussed risks benefits of testing and patient agreeable to defer imaging for PE evaluation at this time. Troponin slightly elevated with previous readings normal. CMP shows stable creatinine consistent with end-stage renal disease. Potassium stable. CBC shows mild anemia consistent with end-stage renal disease secondary anemia. Temperature improved with Tylenol. Laboratory findings discussed with patient and spouse. Encouraged observation admission for troponin trending due to no previous elevations of spray elevated creatinine in the past. Patient and spouse agreeable for observation stay. Case discussed with Dr. Perez covering for sounds position for observation admission and accepting the patient. Case discussed with Dr. Proctor. - Lab Data Result diagrams: 06/03/22 21:09 06/03/22 21:09 Lab Results 09/29/22 09/29/22 09/29/22 Range/Units 21:09 21:09 21:09 WBC 6.0 (3.8-10.6) k/uL RBC 3.74 L (4.30-5.90) m/uL Hgb 10.7 L (13.0-17.5) gm/dL Hct 33.8 L (39.0-53.0) % MCV 90.2 (80.0-100.0) fL MCH 28.6 (25.0-35.0) pg MCHC 31.6 (31.0-37.0) g/dL RDW 14.1 (11.5-15.5) % Plt Count 179 D (150-450) k/uL MPV 8.7 Neutrophils % 78 % Lymphocytes % 8 % Monocytes % 9 % Eosinophils % 3 % Basophils % 1 % Neutrophils # 4.7 (1.3-7.7) k/uL Lymphocytes # 0.5 L (1.0-4.8) k/uL Monocytes # 0.6 (0-1.0) k/uL Eosinophils # 0.2 (0-0.7) k/uL Basophils # 0.0 (0-0.2) k/uL Hypochromasia Moderate PT 11.2 (9.0-12.0) sec INR 1.0 (<1.2) APTT 25.2 (22.0-30.0) sec D-Dimer 1.18 H (<0.60) mg/L FEU Sodium 138 (137-145) mmol/L Potassium 4.9 (3.5-5.1) mmol/L Chloride 92 L (98-107) mmol/L Carbon Dioxide 26 (22-30) mmol/L Anion Gap 20 mmol/L BUN 45 H (9-20) mg/dL Creatinine 9.98 H* (0.66-1.25) mg/dL Est GFR (CKD-EPI)AfAm 6 (>60 ml/min/1.73 sqM) Est GFR (CKD-EPI)NonAf 5 (>60 ml/min/1.73 sqM) Glucose 160 H (74-99) mg/dL Plasma Lactic Acid Forrest (0.7-2.0) mmol/L Calcium 8.8 (8.4-10.2) mg/dL Phosphorus 7.2 H (2.5-4.5) mg/dL Magnesium 1.8 (1.6-2.3) mg/dL Total Bilirubin 0.5 (0.2-1.3) mg/dL AST 21 (17-59) U/L ALT 15 (4-49) U/L Alkaline Phosphatase 75 (38-126) U/L Troponin I (0.000-0.034) ng/mL Total Protein 7.6 (6.3-8.2) g/dL Albumin 4.4 (3.5-5.0) g/dL Coronavirus (PCR) (Not Detectd) 06/03/22 06/03/22 06/03/22 Range/Units 21:09 21:10 21:42 WBC (3.8-10.6) k/uL RBC (4.30-5.90) m/uL Hgb (13.0-17.5) gm/dL Hct (39.0-53.0) % MCV (80.0-100.0) fL MCH (25.0-35.0) pg MCHC (31.0-37.0) g/dL RDW (11.5-15.5) % Plt Count (150-450) k/uL MPV Neutrophils % % Lymphocytes % % Monocytes % % Eosinophils % % Basophils % % Neutrophils # (1.3-7.7) k/uL Lymphocytes # (1.0-4.8) k/uL Monocytes # (0-1.0) k/uL Eosinophils # (0-0.7) k/uL Basophils # (0-0.2) k/uL Hypochromasia PT (9.0-12.0) sec INR (<1.2) APTT (22.0-30.0) sec D-Dimer (<0.60) mg/L FEU Sodium (137-145) mmol/L Potassium (3.5-5.1) mmol/L Chloride (98-107) mmol/L Carbon Dioxide (22-30) mmol/L Anion Gap mmol/L BUN (9-20) mg/dL Creatinine (0.66-1.25) mg/dL Est GFR (CKD-EPI)AfAm (>60 ml/min/1.73 sqM) Est GFR (CKD-EPI)NonAf (>60 ml/min/1.73 sqM) Glucose (74-99) mg/dL Plasma Lactic Acid Forrest 0.9 (0.7-2.0) mmol/L Calcium (8.4-10.2) mg/dL Phosphorus (2.5-4.5) mg/dL Magnesium (1.6-2.3) mg/dL Total Bilirubin (0.2-1.3) mg/dL AST (17-59) U/L ALT (4-49) U/L Alkaline Phosphatase (38-126) U/L Troponin I 0.040 H* (0.000-0.034) ng/mL Total Protein (6.3-8.2) g/dL Albumin (3.5-5.0) g/dL Coronavirus (PCR) Detected A (Not Detectd) - EKG Data EKG Comments: Sinus rhythm, ventricular rate 80 bpm, PA interval 168 ms, QRS duration 104 ms, QT/QTC 381/427 ms PRT axes 69, 79, 62. - Radiology Data Radiology results: report reviewed, image reviewed Chest x-ray reveals mild subsegmental mental atelectasis. No change. No obvious heart failure. Disposition Clinical Impression: COVID-19, Elevated troponin Disposition: ADMITTED IP TO THIS HOSP Condition: Stable Is patient prescribed a controlled substance at d/c from ED?: No Time of Disposition: 00:01
[2022-06-03 22:05] LABS: Partial Thromboplastin Time 25.2 sec (22.0-30.0); Prothrombin Time 11.2 sec (9.0-12.0)
[2022-06-03 22:06] LABS: Potassium 4.9 mmol/L (3.5-5.1)
[2022-06-03 22:08] LABS: Albumin 4.4 g/dL (3.5-5.0); Magnesium 1.8 mg/dL (1.6-2.3); Total Bilirubin 0.5 mg/dL (0.2-1.3); Total Protein 7.6 g/dL (6.3-8.2)
[2022-06-03] MEDS ORDERED: ACETAMINOPHEN TAB 500 MG TAB PO STA (22:08)
[2022-06-03 22:09] LABS: Calcium 8.8 mg/dL (8.4-10.2); Phosphorus 7.2 mg/dL (2.5-4.5)
--- NOTE | 2022-06-03 23:38 | XR ---
EXAMINATION TYPE: XR chest 2V DATE OF EXAM: 06/03/2022 COMPARISON: 05/10/2022 HISTORY: Weakness. Chest pain TECHNIQUE: FINDINGS: There is no heart failure. There is mild subsegmental atelectasis in the lower lung [place]. No pleural effusion. Heart size is fairly normal. There are chest leads.. Thoracic aorta is atheroma tous. IMPRESSION: Mild subsegmental atelectasis without change. No obvious heart failure.
[2022-06-04] MEDS ORDERED: NALOXONE 0.4 MG/ML 1 ML VIAL IV PRN (00:01)
--- NOTE | 2022-06-04 01:47 | P.HPIM ---
History of Present Illness H&P Date: 06/04/22 Chief Complaint: chest pain The patient is a 47 y.o male with a history of ESRD who was noted to have a fever at home. The patient was also complaining of chest pain with SOB. The patient states that his children were sick and were seen in Urgent Care and tested for Strep The patient has a history of DM1, morbid obesity, home dialysis. The patient did not do do his dialysis today because of generalized malaise. The patient was brought to the Emergency Room and was found to have a T 101.1, P 90, RR 18, BP 156/82. The patient tested positive for [place] virus. The lab work showed Na 138, K 4.9, BUN 45, Cr 9.98, trop 0.04, d-dimer 1.18. The patient was hospitalized for further work-up and management. The patient denied nausea, vomiting, has had runny nose no cough. Review of Systems review of systems was done and negative other than as stated above Past Medical History Past Medical History: Heart Failure, Diabetes Mellitus, Dialysis, Renal Disease, Sleep Apnea/CPAP/BIPAP Additional Past Medical History / Comment(s): . History of Any Multi-Drug Resistant Organisms: MRSA Date of last positivie culture/infection: 2009 MDRO Source:: neck Past Surgical History: No Surgical Hx Reported Additional Past Surgical History / Comment(s): dilaysis cath, gastric isabella and y Past Anesthesia/Blood Transfusion Reactions: No Reported Reaction Past Psychological History: Anxiety, Depression Smoking Status: Never smoker Past Alcohol Use History: None Reported Past Drug Use History: None Reported - Past Family History family Additional Family Medical History / Comment(s): denies renal disease or heart disease in the family Medications and Allergies Home Medications Medication Instructions Recorded Confirmed Type ALPRAZolam [Xanax] 0.5 mg PO HS 03/29/22 05/10/22 History Dialyvite 1 tab PO DAILY 03/29/22 05/10/22 History Gabapentin 300 mg PO HS 03/29/22 05/10/22 History Gabapentin [Neurontin] 300 mg PO DAILY PRN 03/29/22 05/10/22 History HYDROcodone/APAP 7.5-325MG [[place] 1 tab PO TID PRN 03/29/22 05/10/22 History 7.5-325] INSULIN ASPART (NovoLOG) [NovoLOG See Protocol SQ TID-W/MEALS PRN 03/29/22 09/0 01/24 History (formulary)] Lidocaine-Prilocaine Cream [Emla 1 applic TOPICAL DAILY PRN 03/29/22 05/10/22 History Cream 2.5%/2.5%] Omeprazole 40 mg PO BID 03/29/22 05/10/22 History Sodium Bicarbonate Tab 650 mg PO BID 03/29/22 05/10/22 History Sucralfate [Carafate] 1 gm PO QID 03/29/22 05/10/22 History Testosterone Cypionate 200 mg IM Q14D 03/29/22 05/10/22 History [Depo-Testosterone] calcitrioL [Calcitriol] 1 mcg PO DAILY 03/29/22 05/10/22 History rOPINIRole HCL [Requip] 0.5 mg PO HS 03/29/22 05/10/22 History Bumetanide [BUMEX] 2 mg PO BID #30 tab 03/31/22 05/10/22 Rx Levothyroxine Sodium [Synthroid] 25 mcg PO DAILY #30 tab 03/31/22 05/10/22 Rx Losartan Potassium 100 mg PO HS #30 tab 03/31/22 05/10/22 Rx carvediloL 12.5 mg PO BID #30 tab 03/31/22 05/10/22 Rx Velphoro 500mg Chewable Tab 1,000 mg PO TID-W/MEALS 05/10/22 05/10/22 History amLODIPine [Norvasc] 10 mg PO DAILY 05/10/22 05/10/22 History Allergies Allergy/AdvReac Type Severity Reaction Status Date / Time No Known Allergies Allergy Verified 05/10/22 22:41 Physical Exam Vitals: Vital Signs Temp Pulse Resp BP Pulse Ox 06/03/22 20:52 18 06/03/22 20:51 100.1 F H 91 17 154/76 97 06/03/22 20:25 101.1 F H 90 18 156/82 100 Intake and Output 06/03/22 06/03/22 06/04/22 14:59 22:59 06:59 Other: Weight 146 kg - Constitutional General appearance: morbidly obese - Respiratory Respiratory: bilateral: diminished - Cardiovascular 2 plus edema Rhythm: regular - Gastrointestinal General gastrointestinal: normal bowel sounds - Integumentary Integumentary: normal - Psychiatric Psychiatric: appropriate affect Results CBC & Chem 7: 06/03/22 21:09 06/03/22 21:09 Labs: Abnormal Lab Results - Last 24 Hours (Table) 06/03/22 06/03/22 06/03/22 Range/Units 21:09 21:09 21:09 RBC 3.74 L (4.30-5.90) m/uL Hgb 10.7 L (13.0-17.5) gm/dL Hct 33.8 L (39.0-53.0) % Lymphocytes # 0.5 L (1.0-4.8) k/uL D-Dimer 1.18 H (<0.60) mg/L FEU Chloride 92 L (98-107) mmol/L BUN 45 H (9-20) mg/dL Creatinine 9.98 H* (0.66-1.25) mg/dL Glucose 160 H (74-99) mg/dL Phosphorus 7.2 H (2.5-4.5) mg/dL Troponin I (0.000-0.034) ng/mL Coronavirus (PCR) (Not Detectd) 06/03/22 06/03/22 Range/Units 21:09 21:42 RBC (4.30-5.90) m/uL Hgb (13.0-17.5) gm/dL Hct (39.0-53.0) % Lymphocytes # (1.0-4.8) k/uL D-Dimer (<0.60) mg/L FEU Chloride (98-107) mmol/L BUN (9-20) mg/dL Creatinine (0.66-1.25) mg/dL Glucose (74-99) mg/dL Phosphorus (2.5-4.5) mg/dL Troponin I 0.040 H* (0.000-0.034) ng/mL Coronavirus (PCR) Detected A (Not Detectd) Chest x-ray: report reviewed Assessment and Plan (1) Chest pain Narrative/Plan: Likely secondary to Covid 19. Elevated troponin will get serial enzymes. Morphine, Oxygen, Nitro, ASA Current Visit: No Status: Acute Code(s): R07.9 - CHEST PAIN, UNSPECIFIED SNOMED Code(s): 60500727 (2) COVID-19 Narrative/Plan: isolation per protocol, not hypoxic no steroids, rest per protocol Current Visit: Yes Status: Acute Code(s): U07.1 - COVID-19 SNOMED Code(s): 445366722 (3) ESRD on dialysis Narrative/Plan: will consult renal for dialysis needs Current Visit: No Status: Acute Code(s): N18.6 - END STAGE RENAL DISEASE; Z99.2 - DEPENDENCE ON RENAL DIALYSIS SNOMED Code(s): 724480409 (4) BiPAP (biphasic positive airway pressure) dependence Narrative/Plan: continue per home Current Visit: No Status: Acute Code(s): Z99.89 - DEPENDENCE ON OTHER ENABLING MACHINES AND DEVICES SNOMED Code(s): 429276635 (5) Diabetes Narrative/Plan: home regimen, sliding scale coverage Current Visit: Yes Status: Acute Code(s): E11.9 - TYPE 2 DIABETES MELLITUS WITHOUT COMPLICATIONS SNOMED Code(s): 30409442 Plan: Telemetry, observation, serial enzymes, Covid-19 protocol
[2022-06-04] MEDS ORDERED: GABAPENTIN 300 MG CAP PO PRN (06:44)
[2022-06-04] MEDS ORDERED: DEXTROSE 50% SYRINGE 50 ML IVP PRN ×2 (06:50)
[2022-06-04] MEDS ORDERED: carvediloL 12.5 MG TAB PO SCH (07:30)
[2022-06-04] MEDS ORDERED: INSULIN ASPART (NovoLOG) 100 UNIT/ML VIAL SQ SCH (07:30)
[2022-06-04] MEDS ORDERED: amLODIPine 10 MG TAB PO SCH (09:00)
[2022-06-04] MEDS ORDERED: FOLIC ACID-VIT B COMPLEX-VIT C 1 CAP PO SCH (09:00)
[2022-06-04] MEDS ORDERED: BUMETANIDE 1 MG TAB PO SCH (09:00)
--- NOTE | 2022-06-04 16:35 | P.DS ---
Providers Date of admission: 06/03/22 23:10 Expected date of discharge: 06/04/22 Attending physician: Kanwal Perez MD Consults: 06/04/22 07:35 Consult Physician Routine Consulting Provider: Gabriel Kahn Consult Reason/Comments: ESRD on iHD at home Do you want consulting provider notified?: Yes 06/04/22 07:36 Consult Physician Routine Consulting Provider: Mavis Johnston Consult Reason/Comments: COVID 19+ with fevers, dyspnea Do you want consulting provider notified?: Yes Primary care physician: Physician Nonstaff Hospital Course: PT left AMA prior to my evalluation Patient Condition at Discharge: Stable Plan - Discharge Summary New Discharge Prescriptions: No Action Sucralfate [Carafate] 1 gm PO QID rOPINIRole HCL [Requip] 0.5 mg PO HS INSULIN ASPART (NovoLOG) [NovoLOG (formulary)] See Protocol SQ TID-W/MEALS PRN PRN Reason: high blood sugar HYDROcodone/APAP 7.5-325MG [[place] 7.5-325] 1 tab PO TID PRN PRN Reason: Pain calcitrioL [Calcitriol] 1 mcg PO DAILY Testosterone Cypionate [Depo-Testosterone] 200 mg IM Q14D Sodium Bicarbonate Tab 650 mg PO BID Bumetanide [BUMEX] 2 mg PO BID #30 tab carvediloL 12.5 mg PO BID #30 tab Levothyroxine Sodium [Synthroid] 25 mcg PO DAILY #30 tab Omeprazole 40 mg PO BID Lidocaine-Prilocaine Cream [Emla Cream 2.5%/2.5%] 1 applic TOPICAL DAILY PRN PRN Reason: before dialysis Gabapentin [Neurontin] 300 mg PO DAILY PRN PRN Reason: nerve pain Gabapentin 300 mg PO HS Dialyvite 1 tab PO DAILY ALPRAZolam [Xanax] 0.5 mg PO HS Losartan Potassium 100 mg PO HS #30 tab amLODIPine [Norvasc] 10 mg PO DAILY Velphoro 500mg Chewable Tab 1,000 mg PO TID-W/MEALS Discharge Medication List ALPRAZolam [Xanax] 0.5 mg PO HS 03/29/22 [History] Dialyvite 1 tab PO DAILY 03/29/22 [History] Gabapentin 300 mg PO HS 03/29/22 [History] Gabapentin [Neurontin] 300 mg PO DAILY PRN 03/29/22 [History] HYDROcodone/APAP 7.5-325MG [[place] 7.5-325] 1 tab PO TID PRN 03/29/22 [History] INSULIN ASPART (NovoLOG) [NovoLOG (formulary)] See Protocol SQ TID-W/MEALS PRN 03/29/22 [History] Lidocaine-Prilocaine Cream [Emla Cream 2.5%/2.5%] 1 applic TOPICAL DAILY PRN 03/29/22 [History] Omeprazole 40 mg PO BID 03/29/22 [History] Sodium Bicarbonate Tab 650 mg PO BID 03/29/22 [History] Sucralfate [Carafate] 1 gm PO QID 03/29/22 [History] Testosterone Cypionate [Depo-Testosterone] 200 mg IM Q14D 03/29/22 [History] calcitrioL [Calcitriol] 1 mcg PO DAILY 03/29/22 [History] rOPINIRole HCL [Requip] 0.5 mg PO HS 03/29/22 [History] Bumetanide [BUMEX] 2 mg PO BID #30 tab 03/31/22 [Rx] Levothyroxine Sodium [Synthroid] 25 mcg PO DAILY #30 tab 03/31/22 [Rx] Losartan Potassium 100 mg PO HS #30 tab 03/31/22 [Rx] carvediloL 12.5 mg PO BID #30 tab 03/31/22 [Rx] Velphoro 500mg Chewable Tab 1,000 mg PO TID-W/MEALS 05/10/22 [History] amLODIPine [Norvasc] 10 mg PO DAILY 05/10/22 [History] Follow up Appointment(s)/Referral(s): Nonstaff,Physician [Primary Care Provider] - 1-2 days Discharge Disposition: Left Against Medical Advice
[2022-06-04] MEDS ORDERED: ALPRAZolam 0.5 MG TAB PO SCH (21:00)
== END 2022-06-04 07:58 | disposition left against medical advice (07) ==
LOC: EC 20:25 → 6NMEDSUR 23:10
PROVIDERS: ADMIT Internal Medicine; ATTEND Internal Medicine
DX: U07.1 COVID-19 (principal); I13.2 Hypertensive heart and chronic kidney disease with heart failure and with stage 5 chronic kidney disease, or end stage renal disease; I50.9 Heart failure, unspecified; E10.22 Type 1 diabetes mellitus with diabetic chronic kidney disease; N18.6 End stage renal disease; E78.5 Hyperlipidemia, unspecified; G47.33 Obstructive sleep apnea (adult) (pediatric); J98.11 Atelectasis; F32.A Depression, unspecified; F41.9 Anxiety disorder, unspecified; D63.1 Anemia in chronic kidney disease; E66.01 Morbid (severe) obesity due to excess calories; I25.10 Atherosclerotic heart disease of native coronary artery without angina pectoris; Z79.4 Long term (current) use of insulin; Z79.899 Other long term (current) drug therapy; Z79.890 Hormone replacement therapy; Z98.84 Bariatric surgery status; Z99.2 Dependence on renal dialysis; Z99.89 Dependence on other enabling machines and devices; Z53.29 Procedure and treatment not carried out because of patient's decision for other reasons; Z68.43 Body mass index [BMI] 50.0-59.9, adult
CPT/HCPCS: 99285; 36415; 93005; 85379; 80053; 83605; 83735; 84100; 84484; 85025; 85610; 85730; 87040; 83036; 87635; 71046; G0378 ×2

== ENCOUNTER 2022-06-04 20:26 | Inpatient (IN) | payer MEDICARE, OTHER ==
[2022-06-04] MEDS ORDERED: VANCOMYCIN 1,000 MG in SODIUM CHLORIDE 0.9% 250 ML IVPB STA (21:13)
[2022-06-04] MEDS ORDERED: ACETAMINOPHEN TAB 325 MG TAB PO PRN (21:20)
[2022-06-04] MEDS ORDERED: NALOXONE 0.4 MG/ML 1 ML VIAL IV PRN (21:20)
[2022-06-04] MEDS ORDERED: VANCOMYCIN IV PER PHARMACY 1 EACH MISC MISCELLANE PRN (21:32)
--- NOTE | 2022-06-04 21:44 | ED ---
Recheck HPI - General Source: patient, family, RN notes reviewed Mode of arrival: ambulatory Limitations: no limitations <Sandra Lamas - Last Filed: 06/12/22 06:30> <Jocelyn David - Last Filed: 06/12/22 11:17> - General Chief Complaint: Recheck/Abnormal Lab/Rx Stated Complaint: blood infection,abnormal labs Time Seen by Provider: 06/04/22 20:47 - History of Present Illness Initial Comments: Patient is a 47-year-old male presents back to the emergency room after being notified of positive blood cultures being advised to return to the emergency room for IV antibiotic therapy. He was seen in the emergency room yesterday by this provider for shortness of breath, chest pain and generalized malaise. Workup found him to be Covid positive but hemodynamically stable for discharge home. His cultures grew staph epi and likely contaminant however given comorbid conditions and concurrent Covid illness empiric treatment with antibiotic therapy and repeated cultures is recommended. He has a past medical history significant for diabetes, hypertension, hyperlipidemia, sleep apnea, end-stage renal disease on home hemodialysis with multiple secondary renal conditions including anemia, and hyperphosphatemia. (Sandra Lamas) - Related Data Home Medications Medication Instructions Recorded Confirmed ALPRAZolam [Xanax] 0.5 mg PO HS 03/29/22 06/04/22 Dialyvite 1 tab PO DAILY 03/29/22 06/04/22 Gabapentin 300 mg PO HS 03/29/22 06/04/22 HYDROcodone/APAP 7.5-325MG [[place] 1 tab PO TID PRN 03/29/22 06/04/22 7.5-325] INSULIN ASPART (NovoLOG) [NovoLOG See Protocol SQ TID-W/MEALS PRN 03/29/22 06/04/22 (formulary)] Lidocaine-Prilocaine Cream [Emla 1 applic TOPICAL DAILY PRN 03/29/22 06/04/22 Cream 2.5%/2.5%] Omeprazole 40 mg PO BID 03/29/22 06/04/22 Sodium Bicarbonate Tab 650 mg PO BID 03/29/22 06/04/22 Testosterone Cypionate 200 mg IM Q14D 03/29/22 06/04/22 [Depo-Testosterone] calcitrioL [Calcitriol] 1 mcg PO DAILY 03/29/22 06/04/22 rOPINIRole HCL [Requip] 0.5 mg PO HS 03/29/22 06/04/22 Velphoro 500mg Chewable Tab 1,000 mg PO TID-W/MEALS 05/10/22 06/04/22 amLODIPine [Norvasc] 10 mg PO DAILY 05/10/22 06/04/22 Previous Rx's Medication Instructions Recorded Bumetanide [BUMEX] 2 mg PO BID #30 tab 03/31/22 Levothyroxine Sodium [Synthroid] 25 mcg PO DAILY #30 tab 03/31/22 Losartan Potassium 100 mg PO HS #30 tab 03/31/22 carvediloL 12.5 mg PO BID #30 tab 03/31/22 Allergies Allergy/AdvReac Type Severity Reaction Status Date / Time No Known Allergies Allergy Verified 06/04/22 21:56 Review of Systems ROS Other: All systems not noted in ROS Statement are negative. <Sandra Lamas - Last Filed: 06/12/22 06:30> ROS Other: All systems not noted in ROS Statement are negative. <Jocelyn aDvid - Last Filed: 06/12/22 11:17> ROS Statement: Those systems with pertinent positive or pertinent negative responses have been documented in the HPI. Past Medical History Past Medical History: Heart Failure, Diabetes Mellitus, Dialysis, Hyperlipidemia, Hypertension, Renal Disease, Sleep Apnea/CPAP/BIPAP Additional Past Medical History / Comment(s): . History of Any Multi-Drug Resistant Organisms: MRSA Date of last positivie culture/infection: 2009 MDRO Source:: neck Past Surgical History: No Surgical Hx Reported Additional Past Surgical History / Comment(s): dilaysis cath, gastric isabella and y Past Anesthesia/Blood Transfusion Reactions: No Reported Reaction Past Psychological History: Anxiety, Depression Smoking Status: Never smoker Past Alcohol Use History: None Reported Past Drug Use History: None Reported - Past Family History family Additional Family Medical History / Comment(s): denies renal disease or heart disease in the family <Sandra Lamas - Last Filed: 06/12/22 06:30> General Exam General appearance: alert, in no apparent distress Head exam: Present: atraumatic, normocephalic, normal inspection Eye exam: Present: normal appearance, PERRL, EOMI. Absent: scleral icterus, conjunctival injection, periorbital swelling ENT exam: Present: normal exam, mucous membranes moist Neck exam: Present: normal inspection Respiratory exam: Present: decreased breath sounds (bibasilar). Absent: respiratory distress, wheezes, rales, rhonchi, stridor, accessory muscle use Cardiovascular Exam: Present: regular rate, normal rhythm, normal heart sounds. Absent: systolic murmur, diastolic murmur, rubs, gallop, clicks Extremities exam: Present: pedal edema (bilateral lower extremity +2) Back exam: Present: normal inspection Neurological exam: Present: alert, oriented X3, CN II-XII intact Psychiatric exam: Present: normal affect, normal mood Skin exam: Present: warm, dry, intact, normal color, other (L AVF +/+). Absent: rash <Sandra Lamas - Last Filed: 06/12/22 06:30> Course Vital Signs 06/04/22 06/04/22 20:39 23:09 Temperature 98.3 F Pulse Rate 81 Respiratory 16 Rate Blood Pressure 179/78 O2 Sat by Pulse 98 Oximetry Fraction of 5 Inspired Oxygen (FIO2) Medical Decision Making - Lab Data Result diagrams: 06/05/22 04:52 06/06/22 14:25 <Sandra Lamas - Last Filed: 06/12/22 06:30> - Lab Data Result diagrams: 06/05/22 04:52 06/06/22 14:25 <Jocelyn David - Last Filed: 06/12/22 11:17> - Medical Decision Making 47-year-old male presenting to the emergency room for notification of positive blood cultures. Currently feeling well. No indication for other diagnostic imaging or laboratory studies at this time. Will order repeat blood cultures along with vancomycin and Unasyn after repeat blood cultures are drawn. Will notify [facility] regarding return to the emergency room for positive cultures and need for admission. Case discussed with Dr. Rojas advised consult to nephrology and no need for Unasyn. Will continue with plan for vancomycin infusion and place admission orders. Case discussed with Dr. David. (Sandra Lamas) Disposition Is patient prescribed a controlled substance at d/c from ED?: No Time of Disposition: 21:20 <Sandra Lamas - Last Filed: 06/12/22 06:30> <Jocelyn David - Last Filed: 06/12/22 11:17> Clinical Impression: Positive blood culture Disposition: ADMITTED IP TO THIS HOSP Condition: Fair
[2022-06-04] MEDS ORDERED: VANCOMYCIN 2,000 MG in SODIUM CHLORIDE 0.9% 500 ML 500 ML IVPB ONE (22:00)
--- NOTE | 2022-06-05 02:20 | P.HPIM ---
History of Present Illness H&P Date: 06/04/22 Chief Complaint: Positive blood culture 47-year-old male with end-stage renal disease on home hemodialysis, diabetes mellitus, obstructive sleep apnea Patient was recently hospitalized with fevers and generalized fatigue which was going on for 1 week he tested positive for Covid however he later left AGAINST MEDICAL ADVICE. He comes back upon receiving a phone call indicating that she had a positive blood culture urging him to come back to the hospital for further investigations and IV antibiotics. Patient had a positive blood culture for gram-positive cocci no id resulted yet. Otherwise patient feeling well denies any chest pain or trouble breathing denies any abdominal pain nausea vomiting denies any changes in bowel or urinary habits. He feels that overall his Covid symptoms are improving he currently denies any generalized body aches denies any sore throat coughing or shortness of breath. Review of Systems Pertinent positives as noted in HPI. All other systems were reviewed and are negative Past Medical History Past Medical History: Heart Failure, Diabetes Mellitus, Dialysis, Renal Disease, Sleep Apnea/CPAP/BIPAP Additional Past Medical History / Comment(s): . History of Any Multi-Drug Resistant Organisms: MRSA Date of last positivie culture/infection: 2009 MDRO Source:: neck Past Surgical History: No Surgical Hx Reported Additional Past Surgical History / Comment(s): dilaysis cath Past Anesthesia/Blood Transfusion Reactions: No Reported Reaction Past Psychological History: Anxiety, Depression Smoking Status: Never smoker Past Alcohol Use History: None Reported Past Drug Use History: None Reported - Past Family History family Additional Family Medical History / Comment(s): denies renal disease or heart disease in the family Medications and Allergies Home Medications Medication Instructions Recorded Confirmed Type ALPRAZolam [Xanax] 0.5 mg PO HS 03/29/22 06/04/22 History Dialyvite 1 tab PO DAILY 03/29/22 06/04/22 History Gabapentin 300 mg PO HS 03/29/22 06/04/22 History HYDROcodone/APAP 7.5-325MG [[place] 1 tab PO TID PRN 03/29/22 06/04/22 History 7.5-325] INSULIN ASPART (NovoLOG) [NovoLOG See Protocol SQ TID-W/MEALS PRN 03/29/22 06/04/22 History (formulary)] Lidocaine-Prilocaine Cream [Emla 1 applic TOPICAL DAILY PRN 03/29/22 06/04/22 History Cream 2.5%/2.5%] Omeprazole 40 mg PO BID 03/29/22 06/04/22 History Sodium Bicarbonate Tab 650 mg PO BID 03/29/22 06/04/22 History Testosterone Cypionate 200 mg IM Q14D 03/29/22 06/04/22 History [Depo-Testosterone] calcitrioL [Calcitriol] 1 mcg PO DAILY 03/29/22 06/04/22 History rOPINIRole HCL [Requip] 0.5 mg PO HS 03/29/22 06/04/22 History Bumetanide [BUMEX] 2 mg PO BID #30 tab 03/31/22 06/04/22 Rx Levothyroxine Sodium [Synthroid] 25 mcg PO DAILY #30 tab 03/31/22 06/04/22 Rx Losartan Potassium 100 mg PO HS #30 tab 03/31/22 06/04/22 Rx carvediloL 12.5 mg PO BID #30 tab 03/31/22 06/04/22 Rx Velphoro 500mg Chewable Tab 1,000 mg PO TID-W/MEALS 05/10/22 06/04/22 History amLODIPine [Norvasc] 10 mg PO DAILY 05/10/22 06/04/22 History Allergies Allergy/AdvReac Type Severity Reaction Status Date / Time No Known Allergies Allergy Verified 06/04/22 21:56 Physical Exam Vitals: Vital Signs Temp Pulse Resp BP Pulse Ox FiO2 06/04/22 23:09 5 06/04/22 20:39 98.3 F 81 16 179/78 98 Intake and Output 06/04/22 06/04/22 06/05/22 14:59 22:59 06:59 Other: Weight 149.685 kg 149.685 kg Constitutional: No acute distress, conversant, pleasant Eyes: Anicteric sclerae, moist conjunctiva, Pupils equal round reactive to light ENMT: NC/AT Oropharynx clear, no erythema, or exudates Neck: Supple, FROM, no masses, or JVD No carotid bruits No thyromegaly Lungs: Clear to auscultation Clear to percussion Normal respiratory effort, no accessory muscle use Cardiovascular: Heart regular in rate and rhythm, No murmurs, gallops, or rubs No peripheral edema Abdominal: Soft Nontender, no guarding, rebound or rigidity Abdomen moving with respiration Normoactive bowel sounds No hepatomegaly, No splenomegaly No palpable mass No abdominal wall hernia noted Skin: Normal temperature, tone, texture, turgor No induration No subcutaneous nodules No rash, lesions No ulcers Extremities: No digital cyanosis No clubbing Pedal pulses intact and symmetrical Radial pulses intact and symmetrical No calf tenderness Psychiatric: Alert and oriented to person, place and time Appropriate affect fair judgement Neuro Muscles Strength 5/5 in all 4 extremities Sensation to light touch grossly present throughout Cranial nerves II-XII grossly intact No focal sensory deficits Lymphatics: no palpable cervical or supraclavicular , or inguinal lymph nodes Thrombosis Risk Factor Assmnt - Choose All That Apply Each Factor Represents 1 point: Age 41-60 years, Obesity (BMI >25) Thrombosis Risk Factor Assessment Total Risk Factor Score: 2 Thrombosis Risk Factor Assessment Level: Low Risk Assessment and Plan Assessment: Positive blood culture No leukocytosis No fever Repeat blood cultures Await final culture results Initiate patient on vancomycin dosing by pharmacy Tylenol for fever when necessary Chronic conditions And decision renal disease on hemodialysis Nephrology consult for dialysis Diabetes mellitus, initiate insulin sliding scale Obstructive sleep apnea encouraged patient to use BiPAP Peripheral neuropathy continue gabapentin COPD currently compensated continue with inhalers as needed Hypertension continue with Coreg losartan and amlodipine Full code DVT prophylaxis heparin subcu 3 times a day
[2022-06-05] MEDS: ALPRAZolam 0.5 MG TAB PO SCH ×2 (03:30→20:21)
[2022-06-05] MEDS: GABAPENTIN 300 MG CAP PO SCH ×2 (03:30→20:21)
[2022-06-05] MEDS: BUMETANIDE 1 MG TAB PO SCH ×3 (03:57→20:21)
[2022-06-05] MEDS: carvediloL 12.5 MG TAB PO SCH ×3 (03:57→15:49)
[2022-06-05] MEDS: LOSARTAN 50 MG TAB PO SCH ×3 (03:57→20:21)
[2022-06-05] MEDS: LEVOTHYROXINE 25 MCG TAB PO SCH (07:17)
[2022-06-05 07:50] LABS: Glucose,Whole Blood 147 mg/dL (70-110)
[2022-06-05] MEDS: INSULIN ASPART (NovoLOG) 100 UNIT/ML VIAL SQ SCH ×4 (07:58→20:21)
[2022-06-05 09:05] LABS: Basophils # (A) 0.04 X 10*3/uL (0.00-0.10); Basophils % (A) 0.9 %; Eosinophils # (A) 0.08 X 10*3/uL (0.04-0.35); Eosinophils % (A) 1.9 %; HCT 30.6 % (39.6-50.0); HGB 9.2 g/dL (13.0-17.0); Immature Grans, Automated 0.5 %; Lymphocytes # (A) 1.56 X 10*3/uL (0.90-5.00); Lymphocytes % (A) 36.4 %; MCH 27.8 pg (27.0-32.0); MCHC 30.1 g/dL (32.0-37.0); MCV 92.4 fL (80.0-97.0); Mean Platelet Volume 10.6 fL (9.5-12.2); Monocytes # (A) 0.76 X 10*3/uL (0.20-1.00); Monocytes % (A) 17.7 %; NRBC Per 100 WBC 0 /100 WBCS (0.0-0.0); Neutrophils # (A) 1.83 X 10*3/uL (1.80-7.70); Neutrophils % (A) 42.6 %; Platelet Count 176 X 10*3/uL (140-440); RBC 3.31 X 10*6/uL (4.40-5.60); RDW 14.4 % (11.5-14.5); WBC 4.29 X 10*3/uL (4.50-10.00)
[2022-06-05] MEDS: PANTOPRAZOLE 40 MG TABLET PO SCH ×2 (09:15→20:21)
[2022-06-05] MEDS: amLODIPine 10 MG TAB PO SCH (09:15)
[2022-06-05] MEDS: HEPARIN SODIUM,PORCINE/PF 5,000 UNIT/0.5 ML SYRINGE SQ SCH ×2 (09:15→15:49)
[2022-06-05 10:08] LABS: Anion Gap 19.5 mmol/L (10.00-18.00); BUN/Creat Ratio 4.96 Ratio (12.00-20.00); Blood Urea Nitrogen 58.5 mg/dL (9.0-27.0); Calcium 7.7 mg/dL (8.7-10.3); Potassium 5.5 mmol/L (3.5-5.5)
--- NOTE | 2022-06-05 10:29 | P.PN ---
Subjective Progress Note Date: 06/05/22 The patient was seen at bedside, no acute events overnight. Objective - Vital Signs Vital signs: Vital Signs Temp 97.9 F 06/05/22 08:00 Pulse 57 L 06/05/22 08:00 Resp 16 06/05/22 08:00 BP 120/60 06/05/22 08:00 Pulse Ox 96 06/05/22 08:00 FiO2 5 06/04/22 23:09 Intake & Output 06/04/22 06/05/22 06/05/22 18:59 06:59 18:59 Weight 149.685 kg Other: # Voids 2 - Exam General: [non toxic], [no distress], [appears at stated age] Derm: [warm], [dry] Head: [atraumatic], [normocephalic], [symmetric] Eyes: [EOMI], [no lid lag], [anicteric sclera] Mouth: [no lip lesion], [mucus membranes moist] Cardiovascular: [S1S2 reg], [no murmur], [positive posterior tibial pulse bilateral], Lungs: [CTA bilateral], [no rhonchi, no rales] , [no accessory muscle use] Abdominal: [soft], [ nontender to palpation], [no guarding], [no appreciable organomegaly] Ext: [no gross muscle atrophy], [no edema], [no contractures] Neuro: [ CN II-XI grossly intact], [no focal neuro deficits] Psych: [Alert], [oriented], [appropriate affect] - Labs CBC & Chem 7: 06/05/22 04:52 06/05/22 04:52 Labs: Abnormal Lab Results - Last 24 Hours (Table) 06/05/22 06/05/22 06/05/22 Range/Units 04:52 04:52 07:48 WBC 4.29 L (4.50-10.00) X 10*3/uL RBC 3.31 L (4.40-5.60) X 10*6/uL Hgb 9.2 L (13.0-17.0) g/dL Hct 30.6 L (39.6-50.0) % MCHC 30.1 L (32.0-37.0) g/dL Chloride 95 L (96-109) mmol/L Anion Gap 19.50 H (10.00-18.00) mmol/L BUN 58.5 H (9.0-27.0) mg/dL Creatinine 11.8 H* (0.6-1.5) mg/dL Est GFR (CKD-EPI)AfAm 5.2 L (60.0-200.0) Est GFR (CKD-EPI)NonAf 4.5 L (60.0-200.0) BUN/Creatinine Ratio 4.96 L (12.00-20.00) Ratio Glucose 164 H (70-110) mg/dL POC Glucose (mg/dL) 147 H (70-110) mg/dL Calcium 7.7 L (8.7-10.3) mg/dL Assessment and Plan Assessment: Gram-positive bacteremia No leukocytosis No fever Repeat blood cultures Await final culture results Initiate patient on vancomycin dosing by pharmacy Tylenol for fever when necessary Consult infectious disease ESRD on hemodialysis Nephrology consult for dialysis Diabetes mellitus - initiate insulin sliding scale Obstructive sleep apnea -encouraged patient to use BiPAP Peripheral neuropathy -continue gabapentin COPD currently compensated -continue with inhalers as needed Hypertension -continue with Coreg losartan and amlodipine DVT Prophylaxis: Subcu heparin PPI prophylaxis not needed Code status: Full code Anticipated Dc Place: Home
[2022-06-05 11:27] LABS: Glucose,Whole Blood 160 mg/dL (70-110)
--- NOTE | 2022-06-05 11:32 | P.NPCON ---
History of Present Illness - Reason for Consult end stage renal disease - History of Present Illness Patient is a 47-year-old male with end-stage renal disease currently on home hemodialysis. Patient's last treatment was 3 days ago. He had come into the ER but left AMA. Blood cultures were drawn at that time and the showed gram-positive cocci and therefore patient was advised to come back to the hospital. No history of fever at home Patient has left upper arm AV fistula with no evidence of redness or pain at his access site. No history of cough abdominal pain nausea or vomiting. Review of Systems As per HPI, other systems negative Past Medical History Past Medical History: Heart Failure, Diabetes Mellitus, Dialysis, Renal Disease, Sleep Apnea/CPAP/BIPAP Additional Past Medical History / Comment(s): . History of Any Multi-Drug Resistant Organisms: MRSA Date of last positivie culture/infection: 2009 MDRO Source:: neck Past Surgical History: No Surgical Hx Reported Additional Past Surgical History / Comment(s): dilaysis cath Past Anesthesia/Blood Transfusion Reactions: No Reported Reaction Past Psychological History: Anxiety, Depression Smoking Status: Never smoker Past Alcohol Use History: None Reported Past Drug Use History: None Reported - Past Family History family Additional Family Medical History / Comment(s): denies renal disease or heart disease in the family Medications and Allergies Home Medications Medication Instructions Recorded Confirmed Type ALPRAZolam [Xanax] 0.5 mg PO HS 03/29/22 06/04/22 History Dialyvite 1 tab PO DAILY 03/29/22 06/04/22 History Gabapentin 300 mg PO HS 03/29/22 06/04/22 History HYDROcodone/APAP 7.5-325MG [[place] 1 tab PO TID PRN 03/29/22 06/04/22 History 7.5-325] INSULIN ASPART (NovoLOG) [NovoLOG See Protocol SQ TID-W/MEALS PRN 03/29/22 06/04/22 History (formulary)] Lidocaine-Prilocaine Cream [Emla 1 applic TOPICAL DAILY PRN 03/29/22 06/04/22 History Cream 2.5%/2.5%] Omeprazole 40 mg PO BID 03/29/22 06/04/22 History Sodium Bicarbonate Tab 650 mg PO BID 03/29/22 06/04/22 History Testosterone Cypionate 200 mg IM Q14D 03/29/22 06/04/22 History [Depo-Testosterone] calcitrioL [Calcitriol] 1 mcg PO DAILY 03/29/22 06/04/22 History rOPINIRole HCL [Requip] 0.5 mg PO HS 03/29/22 06/04/22 History Bumetanide [BUMEX] 2 mg PO BID #30 tab 03/31/22 06/04/22 Rx Levothyroxine Sodium [Synthroid] 25 mcg PO DAILY #30 tab 03/31/22 06/04/22 Rx Losartan Potassium 100 mg PO HS #30 tab 03/31/22 06/04/22 Rx carvediloL 12.5 mg PO BID #30 tab 03/31/22 06/04/22 Rx Velphoro 500mg Chewable Tab 1,000 mg PO TID-W/MEALS 05/10/22 06/04/22 History amLODIPine [Norvasc] 10 mg PO DAILY 05/10/22 06/04/22 History Allergies Allergy/AdvReac Type Severity Reaction Status Date / Time No Known Allergies Allergy Verified 06/04/22 21:56 Physical Exam Vitals: Vital Signs Temp Pulse Pulse Resp BP BP Pulse Ox 06/05/22 08:00 97.9 F 57 L 16 120/60 96 06/05/22 01:00 98.5 F 75 17 149/85 95 06/04/22 23:09 06/04/22 20:39 98.3 F 81 16 179/78 98 FiO2 06/05/22 08:00 06/05/22 01:00 06/04/22 23:09 5 06/04/22 20:39 Intake and Output 06/04/22 06/05/22 06/05/22 22:59 06:59 14:59 Other: # Voids 2 Weight 149.685 kg 149.685 kg Patient is awake, comfortable, not in any acute distress Examination of the heart S1 and S2 Examination of the lungs bilateral breath sounds are heard Abdomen is soft nontender Examination of the lower extremities shows trace edema bilaterally 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 Results - Lab Results Most recent lab results Calcium 7.7 mg/dL (8.7-10.3) L 06/05/22 04:52 06/05/22 04:52 06/05/22 04:52 Assessment and Plan Assessment: 1. End-stage renal disease maintained on home hemodialysis. Last treatment 3 days ago. Patient will be dialyzed today 2. Gram-positive bacteremia with blood culture on 06/03/2022 growing coagulase- negative staph, possible contaminant 3. CK D mineral bone disorder 4. History of hyperkalemia on previous admissions associated with end-stage renal disease Plan: Hemodialysis today Repeat blood cultures Follow-up with ID. Patient may not need further antibiotics if this is contamination.
[2022-06-05] MEDS ORDERED: VANCOMYCIN 2,000 MG in SODIUM CHLORIDE 0.9% 500 ML 500 ML IVPB ONE (12:00)
[2022-06-05] MEDS: HYDROcodone/APAP 7.5-325MG 1 EACH TAB PO PRN ×2 (15:49→22:08)
[2022-06-05 16:55] LABS: Glucose,Whole Blood 287 mg/dL (70-110)
[2022-06-05 20:12] LABS: Glucose,Whole Blood 230 mg/dL (70-110)
[2022-06-06] MEDS: HEPARIN SODIUM,PORCINE/PF 5,000 UNIT/0.5 ML SYRINGE SQ SCH ×3 (00:31→15:31)
[2022-06-06] MEDS: LEVOTHYROXINE 25 MCG TAB PO SCH (05:30)
[2022-06-06] MEDS: HYDROcodone/APAP 7.5-325MG 1 EACH TAB PO PRN (05:30)
--- NOTE | 2022-06-06 06:55 | P.CONS ---
History of Present Illness - Reason for Consult Consult date: 06/05/22 Gram-positive bacteremia Requesting physician: Marisabel Elias - Chief Complaint Positive blood culture x one day - History of Present Illness Patient is a 47-year-old male with a past medical history significant for end-stage renal disease on hemodialysis, patient was recently admitted at this facility and treated for COVID-19 infection patient apparently left AGAINST MEDICAL ADVICE patient did have a blood culture done during that admission which came back positive with gram-positive cocci for the patient was advised to come back to the hospital patient did have a left upper arm AV fistula for his dialysis, patient currently denies having any fever or any chills patient denies having any chest pain or shortness of breath or cough no nausea no vomiting no abdominal pain no diarrhea has been complaining of some discomfort to the left arm AV fistula site however there is no significant swelling redness or any drainage patient was started on vancomycin infectious disease was consulted because of his positive blood cultures Review of Systems Positive point has been mentioned in the HPI rest of the systems are negative Past Medical History Past Medical History: Heart Failure, Diabetes Mellitus, Dialysis, Renal Disease, Sleep Apnea/CPAP/BIPAP Additional Past Medical History / Comment(s): . History of Any Multi-Drug Resistant Organisms: MRSA Year Discovered:: 2009 MDRO Source:: neck Past Surgical History: No Surgical Hx Reported Additional Past Surgical History / Comment(s): dilaysis cath Past Anesthesia/Blood Transfusion Reactions: No Reported Reaction Past Psychological History: Anxiety, Depression Smoking Status: Never smoker Past Alcohol Use History: None Reported Past Drug Use History: None Reported - Past Family History family Additional Family Medical History / Comment(s): denies renal disease or heart disease in the family Medications and Allergies Home Medications Medication Instructions Recorded Confirmed Type ALPRAZolam [Xanax] 0.5 mg PO HS 03/29/22 06/04/22 History Dialyvite 1 tab PO DAILY 03/29/22 06/04/22 History Gabapentin 300 mg PO HS 03/29/22 06/04/22 History HYDROcodone/APAP 7.5-325MG [[place] 1 tab PO TID PRN 03/29/22 06/04/22 History 7.5-325] INSULIN ASPART (NovoLOG) [NovoLOG See Protocol SQ TID-W/MEALS PRN 03/29/22 06/04/22 History (formulary)] Lidocaine-Prilocaine Cream [Emla 1 applic TOPICAL DAILY PRN 03/29/22 06/04/22 History Cream 2.5%/2.5%] Omeprazole 40 mg PO BID 03/29/22 06/04/22 History Sodium Bicarbonate Tab 650 mg PO BID 03/29/22 06/04/22 History Testosterone Cypionate 200 mg IM Q14D 03/29/22 06/04/22 History [Depo-Testosterone] calcitrioL [Calcitriol] 1 mcg PO DAILY 03/29/22 06/04/22 History rOPINIRole HCL [Requip] 0.5 mg PO HS 03/29/22 06/04/22 History Bumetanide [BUMEX] 2 mg PO BID #30 tab 03/31/22 06/04/22 Rx Levothyroxine Sodium [Synthroid] 25 mcg PO DAILY #30 tab 03/31/22 06/04/22 Rx Losartan Potassium 100 mg PO HS #30 tab 03/31/22 06/04/22 Rx carvediloL 12.5 mg PO BID #30 tab 03/31/22 06/04/22 Rx Velphoro 500mg Chewable Tab 1,000 mg PO TID-W/MEALS 05/10/22 06/04/22 History amLODIPine [Norvasc] 10 mg PO DAILY 05/10/22 06/04/22 History Allergies Allergy/AdvReac Type Severity Reaction Status Date / Time No Known Allergies Allergy Verified 06/04/22 21:56 Physical Exam Vitals: Vital Signs Temp Pulse Pulse Resp BP BP Pulse Ox 06/05/22 08:00 97.9 F 57 L 16 120/60 96 06/05/22 01:00 98.5 F 75 17 149/85 95 06/04/22 23:09 06/04/22 20:39 98.3 F 81 16 179/78 98 FiO2 06/05/22 08:00 06/05/22 01:00 06/04/22 23:09 5 06/04/22 20:39 Intake and Output 06/04/22 06/05/22 06/05/22 22:59 06:59 14:59 Other: # Voids 2 Weight 149.685 kg 149.685 kg GENERAL DESCRIPTION: Middle-aged male lying in bed, no distress. No tachypnea or accessory muscle of respiration use. HEENT: Shows Pallor , no scleral icterus. Oral mucous membrane is dry. No pharyngeal erythema or thrush NECK: Trachea central, no thyromegaly. LUNGS: Unlabored breathing. Clear to auscultation anteriorly. No wheeze or crack le. HEART: S1, S2, regular rate and rhythm. No loud murmur ABDOMEN: Soft, no tenderness , guarding or rigidity, no organomegaly EXTREMITIES: No edema of feet. SKIN: No rash, no masses palpable. NEUROLOGICAL: The patient is awake, alert, oriented x3, mood and affect normal. Results CBC & Chem 7: 06/05/22 04:52 06/06/22 14:25 Labs: Abnormal Lab Results - Last 24 Hours (Table) 06/05/22 06/05/22 06/05/22 Range/Units 04:52 04:52 07:48 WBC 4.29 L (4.50-10.00) X 10*3/uL RBC 3.31 L (4.40-5.60) X 10*6/uL Hgb 9.2 L (13.0-17.0) g/dL Hct 30.6 L (39.6-50.0) % MCHC 30.1 L (32.0-37.0) g/dL Chloride 95 L (96-109) mmol/L Anion Gap 19.50 H (10.00-18.00) mmol/L BUN 58.5 H (9.0-27.0) mg/dL Creatinine 11.8 H* (0.6-1.5) mg/dL Est GFR (CKD-EPI)AfAm 5.2 L (60.0-200.0) Est GFR (CKD-EPI)NonAf 4.5 L (60.0-200.0) BUN/Creatinine Ratio 4.96 L (12.00-20.00) Ratio Glucose 164 H (70-110) mg/dL POC Glucose (mg/dL) 147 H (70-110) mg/dL Calcium 7.7 L (8.7-10.3) mg/dL Assessment and Plan (1) Positive blood culture Status: Acute Code(s): R78.81 - BACTEREMIA SNOMED Code(s): 159201595 Plan: 1patient with the positive blood culture with gram-positive cocci in this patient with recent admission to the hospital for COVID patient is currently afebrile he is breathing comfortably no significant cellulitis at this left arm AV fistula site with a question of possible skin contamination. 2blood cultures will be repeated document clearance 3-patient to continue with the vancomycin while waiting for the culture to finalize We will follow on clinical condition and cultures to further adjust medication if needed Thank you for this consultation will follow this patient along with you Time with Patient: Greater than 30
[2022-06-06 07:23] LABS: Glucose,Whole Blood 107 mg/dL (70-110)
[2022-06-06] MEDS: INSULIN ASPART (NovoLOG) 100 UNIT/ML VIAL SQ SCH ×2 (07:24→12:35)
[2022-06-06] MEDS: carvediloL 12.5 MG TAB PO SCH (08:09)
[2022-06-06] MEDS: amLODIPine 10 MG TAB PO SCH (08:09)
[2022-06-06] MEDS: BUMETANIDE 1 MG TAB PO SCH (08:10)
[2022-06-06] MEDS: PANTOPRAZOLE 40 MG TABLET PO SCH (08:10)
--- NOTE | 2022-06-06 10:05 | P.PN ---
Subjective Patient is seen for follow-up for end-stage renal disease. He was dialyzed yesterday with 4.5 L of ultrafiltration. Patient tolerated his treatment well. Blood cultures have been negative. Most likely contaminant. Status post IV antibiotics. No significant complaints today. Objective - Vital Signs Vital signs: Vital Signs Temp 97.9 F 06/06/22 08:00 Pulse 73 06/06/22 08:00 Resp 16 06/06/22 08:00 BP 160/93 06/06/22 08:00 Pulse Ox 96 06/06/22 08:00 FiO2 5 06/04/22 23:09 Intake & Output 06/05/22 06/06/22 06/06/22 18:59 06:59 18:59 Intake Total 500 Output Total 4500 Balance -4000 Intake: Intake, IV Titration 500 Amount Vancomycin 2,000 mg In 500 Sodium Chloride 0.9% 500 ml 500 ml @ 167 mls/hr IVPB ONCE ONE Rx#: [id number] Output: Hemodialysis 4500 Other: Voiding Method Toilet # Voids 2 - Exam Patient is awake, comfortable, not in any acute distress Alert oriented 3 Appears euvolemic [employer] exam grossly intact - Labs CBC & Chem 7: 06/05/22 04:52 06/05/22 04:52 Labs: Abnormal Lab Results - Last 24 Hours (Table) 06/05/22 06/05/22 06/05/22 Range/Units 04:52 11:26 16:35 Chloride 95 L (96-109) mmol/L Anion Gap 19.50 H (10.00-18.00) mmol/L BUN 58.5 H (9.0-27.0) mg/dL Creatinine 11.8 H* (0.6-1.5) mg/dL Est GFR (CKD-EPI)AfAm 5.2 L (60.0-200.0) Est GFR (CKD-EPI)NonAf 4.5 L (60.0-200.0) BUN/Creatinine Ratio 4.96 L (12.00-20.00) Ratio Glucose 164 H (70-110) mg/dL POC Glucose (mg/dL) 160 H 287 H (70-110) mg/dL Calcium 7.7 L (8.7-10.3) mg/dL 06/05/22 Range/Units 20:10 Chloride (96-109) mmol/L Anion Gap (10.00-18.00) mmol/L BUN (9.0-27.0) mg/dL Creatinine (0.6-1.5) mg/dL Est GFR (CKD-EPI)AfAm (60.0-200.0) Est GFR (CKD-EPI)NonAf (60.0-200.0) BUN/Creatinine Ratio (12.00-20.00) Ratio Glucose (70-110) mg/dL POC Glucose (mg/dL) 230 H (70-110) mg/dL Calcium (8.7-10.3) mg/dL Microbiology - Last 24 Hours (Table) 06/04/22 22:53 Blood Culture - Preliminary Blood No Growth after 24 hours 06/04/22 22:53 Blood Culture - Preliminary Blood No Growth after 24 hours Assessment and Plan Assessment: 1. End-stage renal disease maintained on home hemodialysis. Status post hemodialysis yesterday with UF of 4.5 L. 2. Gram-positive bacteremia with blood culture on 06/03/2022 growing coagulase- negative staph, possible contaminant. Status post antibiotics 3. CK D mineral bone disorder 4. History of hyperkalemia on previous admissions associated with end-stage renal disease Plan: Okay to discharge from nephrology standpoint if cleared by ID Patient will resume his home hemodialysis as per schedule.
[2022-06-06 11:35] LABS: Glucose,Whole Blood 179 mg/dL (70-110)
--- NOTE | 2022-06-06 13:35 | P.DS ---
Providers Date of admission: 06/04/22 21:19 Expected date of discharge: 06/06/22 Attending physician: Yulisa Rojas MD Consults: 06/04/22 21:20 Consult Physician Routine Consulting Provider: Jeimy Johnson Consult Reason/Comments: ESRD HD Do you want consulting provider notified?: Yes 06/05/22 10:29 Consult Physician Routine Consulting Provider: Valentín Andre Consult Reason/Comments: G+ve bacteremia Do you want consulting provider notified?: Yes Primary care physician: Stated None Hospital Course: Discharge Diagnosis: Gram-positive bacteremia ESRD on hemodialysis Diabetes mellitus Obstructive sleep apnea Peripheral neuropathy COPD currently compensated Hypertension Hospital Course: 47-year-old male with end-stage renal disease on home hemodialysis, diabetes mellitus, obstructive sleep apnea Patient was recently hospitalized with fevers and generalized fatigue which was going on for 1 week he tested positive for Covid however he later left AGAINST MEDICAL ADVICE. He comes back upon receiving a phone call indicating that she had a positive blood culture urging him to come back to the hospital for further investigations and IV antibiotics. Patient had a positive blood culture for gram-positive cocci no id resulted yet. Otherwise patient feeling well denies any chest pain or trouble breathing denies any abdominal pain nausea vomiting denies any changes in bowel or urinary habits. He feels that overall his Covid symptoms are improving he currently denies any generalized body aches denies any sore throat coughing or shortness of breath. 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 Patient seen and examined at bedside. Vital signs reviewed and stable. General: [nontoxic], [no distress], [appears at stated age] Derm: [warm], [dry] Head: [atraumatic], [normocephalic], [symmetric] Eyes: [EOMI], [no lid lag], [anicteric sclera] Mouth: [no lip lesion], [mucus membranes moist] Cardiovascular: [S1S2 reg], [no murmur] Lungs: [CTA bilateral], [no rhonchi, no rales] , [no accessory muscle use] Abdominal: [soft], [ nontender to palpation], [no guarding], [no appreciable organomegaly] Ext: [no gross muscle atrophy], [no edema], [no contractures] Neuro: [ CN II-XI grossly intact], [no focal neuro deficits] Psych: [Alert], [oriented], [appropriate affect] A total of 45 minutes of time were spent preparing this complex discharge summary. Plan - Discharge Summary New Discharge Prescriptions: Continue rOPINIRole HCL [Requip] 0.5 mg PO HS INSULIN ASPART (NovoLOG) [NovoLOG (formulary)] See Protocol SQ TID-W/MEALS PRN PRN Reason: high blood sugar HYDROcodone/APAP 7.5-325MG [[place] 7.5-325] 1 tab PO TID PRN PRN Reason: Pain calcitrioL [Calcitriol] 1 mcg PO DAILY Testosterone Cypionate [Depo-Testosterone] 200 mg IM Q14D Sodium Bicarbonate Tab 650 mg PO BID Bumetanide [BUMEX] 2 mg PO BID #30 tab carvediloL 12.5 mg PO BID #30 tab Levothyroxine Sodium [Synthroid] 25 mcg PO DAILY #30 tab Omeprazole 40 mg PO BID Lidocaine-Prilocaine Cream [Emla Cream 2.5%/2.5%] 1 applic TOPICAL DAILY PRN PRN Reason: before dialysis Gabapentin 300 mg PO HS Dialyvite 1 tab PO DAILY ALPRAZolam [Xanax] 0.5 mg PO HS Losartan Potassium 100 mg PO HS #30 tab amLODIPine [Norvasc] 10 mg PO DAILY Velphoro 500mg Chewable Tab 1,000 mg PO TID-W/MEALS Discharge Medication List ALPRAZolam [Xanax] 0.5 mg PO HS 03/29/22 [History] Dialyvite 1 tab PO DAILY 03/29/22 [History] Gabapentin 300 mg PO HS 03/29/22 [History] HYDROcodone/APAP 7.5-325MG [[place] 7.5-325] 1 tab PO TID PRN 03/29/22 [History] INSULIN ASPART (NovoLOG) [NovoLOG (formulary)] See Protocol SQ TID-W/MEALS PRN 03/29/22 [History] Lidocaine-Prilocaine Cream [Emla Cream 2.5%/2.5%] 1 applic TOPICAL DAILY PRN 03/29/22 [History] Omeprazole 40 mg PO BID 03/29/22 [History] Sodium Bicarbonate Tab 650 mg PO BID 03/29/22 [History] Testosterone Cypionate [Depo-Testosterone] 200 mg IM Q14D 03/29/22 [History] calcitrioL [Calcitriol] 1 mcg PO DAILY 03/29/22 [History] rOPINIRole HCL [Requip] 0.5 mg PO HS 03/29/22 [History] Bumetanide [BUMEX] 2 mg PO BID #30 tab 03/31/22 [Rx] Levothyroxine Sodium [Synthroid] 25 mcg PO DAILY #30 tab 03/31/22 [Rx] Losartan Potassium 100 mg PO HS #30 tab 03/31/22 [Rx] carvediloL 12.5 mg PO BID #30 tab 03/31/22 [Rx] Velphoro 500mg Chewable Tab 1,000 mg PO TID-W/MEALS 05/10/22 [History] amLODIPine [Norvasc] 10 mg PO DAILY 05/10/22 [History] Follow up Appointment(s)/Referral(s): None,Stated [Primary Care Provider] - 1 Week Patient Instructions/Handouts: Bacteremia (DC), Social Distancing Guidelines for COVID-19 (DC) Discharge Disposition: HOME SELF-CARE
[2022-06-06 15:08] LABS: African American GFR (CKD) 6 (>60 ml/min/1.73 sqM); Anion Gap 18 mmol/L; Blood Urea Nitrogen 56 mg/dL (9-20); Carbon Dioxide 25 mmol/L (22-30); Chloride 94 mmol/L (98-107); Glucose 198 mg/dL (74-99); Non-African American GFR(CKD) 5 (>60 ml/min/1.73 sqM); Sodium 137 mmol/L (137-145)
[2022-06-06 15:13] LABS: Vancomycin,Random 21.3 ug/mL
[2022-06-06 15:15] LABS: Phosphorus 9.7 mg/dL (2.5-4.5)
[2022-06-06 15:58] VITALS: BP 134/84; PULSE 73; RESP 16; TEMP 98.1
[2022-06-07 08:27] LABS: Hepatitis B Surface AB- Quant 3.5 mIU/mL; Hepatitis B Surface Antibody Nonreactive (Nonreactive)
[2022-06-07 08:35] LABS: Hepatitis B Surface Antigen Nonreactive (Nonreactive)
[2022-06-07 09:24] LABS: African American GFR (CKD) 5.2 (60.0-200.0); Non-African American GFR(CKD) 4.5 (60.0-200.0)
--- NOTE | 2022-06-13 15:24 | P.PN ---
Subjective Progress Note Date: 06/06/22 Principal diagnosis: Positive blood culture Patient is a 47-year-old male with a past medical history significant for end-stage renal disease on hemodialysis, with a recent treatment for cover 19 at the patient did have blood culture drawn which came back positive with gram-positive cocci for the patient was advised to come back to the hospital On today's evaluation that is 06/06/2022, the patient denies having any fever or any chills, the patient is breathing comfortably. Denies having any chest pain or shortness breath, nausea no vomiting abdominal pain no diarrhea feeling better wants to go home Objective - Vital Signs Vital signs: Vital Signs Temp 98.6 F 06/06/22 10:00 Pulse 78 06/06/22 10:00 Resp 18 06/06/22 10:00 BP 132/71 06/06/22 10:00 Pulse Ox 95 06/06/22 10:00 FiO2 5 06/04/22 23:09 Intake & Output 06/05/22 06/06/22 06/06/22 18:59 06:59 18:59 Intake Total 500 Output Total 4500 Balance -4000 Intake: Intake, IV Titration 500 Amount Vancomycin 2,000 mg In 500 Sodium Chloride 0.9% 500 ml 500 ml @ 167 mls/hr IVPB ONCE ONE Rx#: [id number] Output: Hemodialysis 4500 Other: Voiding Method Toilet # Voids 2 - Exam GENERAL DESCRIPTION: Middle-aged male lying in bed in no distress RESPIRATORY SYSTEM: Unlabored breathing , decreased breath sounds at bases HEART: S1 S2 regular rate and rhythm , ABDOMEN: Soft , no tenderness EXTREMITIES: No edema feet - Labs CBC & Chem 7: 06/05/22 04:52 06/06/22 14:25 Labs: Abnormal Lab Results - Last 24 Hours (Table) 06/05/22 06/05/22 06/06/22 Range/Units 16:35 20:10 11:23 POC Glucose (mg/dL) 287 H 230 H 179 H (70-110) mg/dL Microbiology - Last 24 Hours (Table) 06/05/22 11:15 Blood Culture - Preliminary Blood No Growth after 24 hours 06/04/22 22:53 Blood Culture - Preliminary Blood No Growth after 24 hours 06/04/22 22:53 Blood Culture - Preliminary Blood No Growth after 24 hours Assessment and Plan (1) Positive blood culture Status: Acute Code(s): R78.81 - BACTEREMIA SNOMED Code(s): 018528247 Plan: 1patient with the positive blood culture with gram-positive cocci in this patient with recent admission to the hospital for COVID patient is currently afebrile he is breathing comfortably no significant cellulitis at this left arm AV fistula site with a question of possible skin contamination. Blood culture has been finalized with a coagulase negative staph and the patient repeat blood culture has been negative, more likely indicating contamination no need for vancomycin or antibiotic on discharge discussed with the admitting physician working on discharge Time with Patient: Less than 30
== END 2022-06-06 16:14 | disposition home or self-care (01) | DRG 871 ==
LOC: EC 20:26 → 4SSUR 21:19
PROVIDERS: ADMIT Internal Medicine; ATTEND Internal Medicine
DX: R78.81 Bacteremia (principal); N18.6 End stage renal disease; I13.2 Hypertensive heart and chronic kidney disease with heart failure and with stage 5 chronic kidney disease, or end stage renal disease; E11.22 Type 2 diabetes mellitus with diabetic chronic kidney disease; F41.9 Anxiety disorder, unspecified; B95.7 Other staphylococcus as the cause of diseases classified elsewhere; G62.9 Polyneuropathy, unspecified; I50.9 Heart failure, unspecified; J44.9 Chronic obstructive pulmonary disease, unspecified; E83.89 Other disorders of mineral metabolism; F32.A Depression, unspecified; G47.33 Obstructive sleep apnea (adult) (pediatric); Z99.2 Dependence on renal dialysis; Z86.16 Personal history of COVID-19; Z86.14 Personal history of Methicillin resistant Staphylococcus aureus infection; Z79.4 Long term (current) use of insulin; Z79.899 Other long term (current) drug therapy; Z79.890 Hormone replacement therapy
CPT/HCPCS: 80048; 80202; 83735; 84100; 85025; 86704; 86706; 87040; 87340; 90935; 94660; 96365; 99285

== ENCOUNTER 2022-06-30 09:38 | Emergency (ER) | payer MEDICARE, OTHER ==
[2022-06-30 09:47] VITALS: RESP 20; TEMP 98.6
[2022-06-30 10:02] LABS: Basophils % (A) 1 %; Eosinophils # (A) 0.2 k/uL (0-0.7); Eosinophils % (A) 3 %; HCT 29.3 % (39.0-53.0); HGB 9.6 gm/dL (13.0-17.5); Hypochromasia Slight; Lymphocytes # (A) 1.3 k/uL (1.0-4.8); Lymphocytes % (A) 17 %; MCH 29.1 pg (25.0-35.0); MCHC 32.9 g/dL (31.0-37.0); MCV 88.4 fL (80.0-100.0); Mean Platelet Volume 8.2; Monocytes # (A) 0.5 k/uL (0-1.0); Monocytes % (A) 7 %; Neutrophils # (A) 5.5 k/uL (1.3-7.7); Neutrophils % (A) 70 %; Platelet Count 194 k/uL (150-450); RBC 3.31 m/uL (4.30-5.90); RDW 13.9 % (11.5-15.5); WBC 7.8 k/uL (3.8-10.6)
[2022-06-30 10:15] LABS: ALT 19 U/L (4-49); African American GFR (CKD) 9 (>60 ml/min/1.73 sqM); Albumin 3.6 g/dL (3.5-5.0); Anion Gap 15 mmol/L; Blood Urea Nitrogen 61 mg/dL (9-20); Calcium 7.3 mg/dL (8.4-10.2); Carbon Dioxide 22 mmol/L (22-30); Chloride 99 mmol/L (98-107); Glucose 274 mg/dL (74-99); Non-African American GFR(CKD) 7 (>60 ml/min/1.73 sqM); Salicylate <1.0 mg/dL; Sodium 136 mmol/L (137-145); Total Bilirubin 0.6 mg/dL (0.2-1.3); Total Protein 6.5 g/dL (6.3-8.2)
[2022-06-30 10:17] LABS: AST 24 U/L (17-59); Alkaline Phosphatase 77 U/L (38-126); Phosphorus 8.5 mg/dL (2.5-4.5); Potassium 5.1 mmol/L (3.5-5.1)
--- NOTE | 2022-06-30 11:34 | ED ---
Recheck HPI - General Chief Complaint: Recheck/Abnormal Lab/Rx Stated Complaint: high potassium Time Seen by Provider: 06/30/22 09:48 Source: patient, EMS, RN notes reviewed Mode of arrival: EMS Limitations: no limitations - History of Present Illness Initial Comments: 47-year-old male presents emergency from for evaluation of possible hyperkalemia. Patient had labs drawn and which she received phone call stating has potassium was 7.7. Patient states he does home dialysis and states labs were drawn for his treatment last night. Patient states she is asymptomatic he does admit that his been having issues with low blood pressure during his dialysis treatments. Patient states she's had no recent medication changes they did cut back on some fluids. 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 Patient states he prefers to follow-up with local nephrology though is currently being seen in [place]. - Related Data Home Medications Medication Instructions Recorded Confirmed ALPRAZolam [Xanax] 0.5 mg PO HS 03/29/22 06/04/22 Dialyvite 1 tab PO DAILY 03/29/22 06/04/22 Gabapentin 300 mg PO HS 03/29/22 06/04/22 HYDROcodone/APAP 7.5-325MG [[place] 1 tab PO TID PRN 03/29/22 06/04/22 7.5-325] INSULIN ASPART (NovoLOG) [NovoLOG See Protocol SQ TID-W/MEALS PRN 03/29/22 06/04/22 (formulary)] Lidocaine-Prilocaine Cream [Emla 1 applic TOPICAL DAILY PRN 03/29/22 06/04/22 Cream 2.5%/2.5%] Omeprazole 40 mg PO BID 03/29/22 06/04/22 Sodium Bicarbonate Tab 650 mg PO BID 03/29/22 06/04/22 Testosterone Cypionate 200 mg IM Q14D 03/29/22 06/04/22 [Depo-Testosterone] calcitrioL [Calcitriol] 1 mcg PO DAILY 03/29/22 06/04/22 rOPINIRole HCL [Requip] 0.5 mg PO HS 03/29/22 06/04/22 Velphoro 500mg Chewable Tab 1,000 mg PO TID-W/MEALS 05/10/22 06/04/22 amLODIPine [Norvasc] 10 mg PO DAILY 05/10/22 06/04/22 Previous Rx's Medication Instructions Recorded Bumetanide [BUMEX] 2 mg PO BID #30 tab 03/31/22 Levothyroxine Sodium [Synthroid] 25 mcg PO DAILY #30 tab 03/31/22 Losartan Potassium 100 mg PO HS #30 tab 03/31/22 carvediloL 12.5 mg PO BID #30 tab 03/31/22 Allergies Allergy/AdvReac Type Severity Reaction Status Date / Time No Known Allergies Allergy Verified 06/30/22 09:47 Review of Systems ROS Statement: Those systems with pertinent positive or pertinent negative responses have been documented in the HPI. ROS Other: All systems not noted in ROS Statement are negative. Past Medical History Past Medical History: Heart Failure, Diabetes Mellitus, Dialysis, Renal Disease, Sleep Apnea/CPAP/BIPAP Additional Past Medical History / Comment(s): . History of Any Multi-Drug Resistant Organisms: MRSA Date of last positivie culture/infection: 2009 MDRO Source:: neck Past Surgical History: No Surgical Hx Reported Additional Past Surgical History / Comment(s): dilaysis cath Past Anesthesia/Blood Transfusion Reactions: No Reported Reaction Past Psychological History: Anxiety, Depression Smoking Status: Never smoker Past Alcohol Use History: None Reported Past Drug Use History: None Reported - Past Family History family Additional Family Medical History / Comment(s): denies renal disease or heart disease in the family General Exam Limitations: no limitations General appearance: alert, in no apparent distress Head exam: Present: atraumatic, normocephalic, normal inspection Eye exam: Present: normal appearance, PERRL, EOMI. Absent: scleral icterus, conjunctival injection, periorbital swelling ENT exam: Present: normal exam, normal oropharynx, mucous membranes moist Neck exam: Present: normal inspection, full ROM. Absent: tenderness, meningismus, lymphadenopathy Respiratory exam: Present: normal lung sounds bilaterally. Absent: respiratory distress, wheezes, rales, rhonchi, stridor Cardiovascular Exam: Present: regular rate, normal rhythm, normal heart sounds. Absent: systolic murmur, diastolic murmur, rubs, gallop, clicks GI/Abdominal exam: Present: soft, normal bowel sounds. Absent: distended, tenderness, guarding, rebound, rigid Course Vital Signs 06/30/22 06/30/22 06/30/22 09:43 09:47 11:45 Temperature 98.6 F 98.6 F Pulse Rate 86 78 Respiratory 20 20 Rate Blood Pressure 159/84 148/72 148/78 O2 Sat by Pulse 100 98 Oximetry Medical Decision Making - Medical Decision Making Patient's potassium within normal limits a 5.1 patient does have mildly elevated phosphorus, calcium is low. I did discuss case with on-call nephrology Dr. Kahn recommended the patient take PhosLo and which patient states she currently is taking. He is to not take his blood pressure medication prior to his treatments uses follow-up in office for evaluation of his blood pressure medication and patient informed that he needs request transfer to local facility to follow-up with nephrology here. - Lab Data Result diagrams: 06/30/22 09:51 06/30/22 09:51 Lab Results 06/30/22 06/30/22 Range/Units 09:51 09:51 WBC 7.8 (3.8-10.6) k/uL RBC 3.31 L (4.30-5.90) m/uL Hgb 9.6 L (13.0-17.5) gm/dL Hct 29.3 L (39.0-53.0) % MCV 88.4 (80.0-100.0) fL MCH 29.1 (25.0-35.0) pg MCHC 32.9 (31.0-37.0) g/dL RDW 13.9 (11.5-15.5) % Plt Count 194 (150-450) k/uL MPV 8.2 Neutrophils % 70 % Lymphocytes % 17 % Monocytes % 7 % Eosinophils % 3 % Basophils % 1 % Neutrophils # 5.5 (1.3-7.7) k/uL Lymphocytes # 1.3 (1.0-4.8) k/uL Monocytes # 0.5 (0-1.0) k/uL Eosinophils # 0.2 (0-0.7) k/uL Basophils # 0.0 (0-0.2) k/uL Hypochromasia Slight Sodium 136 L (137-145) mmol/L Potassium 5.1 (3.5-5.1) mmol/L Chloride 99 (98-107) mmol/L Carbon Dioxide 22 (22-30) mmol/L Anion Gap 15 mmol/L BUN 61 H (9-20) mg/dL Creatinine 7.72 H* (0.66-1.25) mg/dL Est GFR (CKD-EPI)AfAm 9 (>60 ml/min/1.73 sqM) Est GFR (CKD-EPI)NonAf 7 (>60 ml/min/1.73 sqM) Glucose 274 H (74-99) mg/dL Calcium 7.3 L (8.4-10.2) mg/dL Phosphorus 8.5 H (2.5-4.5) mg/dL Total Bilirubin 0.6 (0.2-1.3) mg/dL AST 24 (17-59) U/L ALT 19 (4-49) U/L Alkaline Phosphatase 77 (38-126) U/L Total Protein 6.5 (6.3-8.2) g/dL Albumin 3.6 (3.5-5.0) g/dL Salicylates <1.0 mg/dL Disposition Clinical Impression: ESRD on dialysis, Encounter for laboratory test Disposition: HOME SELF-CARE Condition: Stable Instructions (If sedation given, give patient instructions): Hyperkalemia (ED) Additional Instructions: Please return to the Emergency Department if symptoms worsen or any other concerns. Is patient prescribed a controlled substance at d/c from ED?: No Referrals: Nonstaff,Physician [Primary Care Provider] - 1-2 days Time of Disposition: 11:34
[2022-06-30 11:47] VITALS: BP 148/78; PULSE 78
== END 2022-06-30 11:45 | disposition home or self-care (01) ==
LOC: EC 09:38
DX: N18.6 End stage renal disease (principal); Z99.2 Dependence on renal dialysis; Z00.00 Encounter for general adult medical examination without abnormal findings; I50.9 Heart failure, unspecified; E11.9 Type 2 diabetes mellitus without complications; G47.30 Sleep apnea, unspecified; F32.A Depression, unspecified; F41.9 Anxiety disorder, unspecified; Z79.899 Other long term (current) drug therapy; Z79.4 Long term (current) use of insulin; Z79.83 Long term (current) use of bisphosphonates; Z79.811 Long term (current) use of aromatase inhibitors
CPT/HCPCS: 36415; 80053; 80179; 84100; 85025; 93005; 99285